=== PATIENT | female | born 1965 | race Caucasian/White ===

== ENCOUNTER 2019-09-02 06:35 | Outpatient (CLI) | payer OTHER, SELFPAY ==
--- NOTE | ~2019-09-02 | XR_ITS ---
XR chest 2V 09/02/2019 07:09 Indication: Cough and dyspnea Procedure: 2 view chest Comparison: Comparison to multiple prior studies sequentially, with oldest reviewed study dated 07/18. Findings: Cardiomegaly. There is linear scarring/atelectasis left midlung. Calcified granuloma right upper lobe. No acute focal pneumonia, edema or effusion. No pneumothorax. No acute osseous abnormalit y. Impression: 1: No acute cardiopulmonary disease. Reviewed, dictated and finalized at location A. CTOR WEB Impression: 1: No acute cardiopulmonary disease.
[2019-09-02 06:54] LABS: Basophils Absolute Auto 0.1 K/mm3 (0.0-0.1); Basophils Percent Auto 0.7 % (0.2-1.2); Eosinophils Absolute Auto 0.3 K/mm3 (0-0.3); Eosinophils Percent Auto 2.6 % (0-4.4); Hematocrit 47.1 % (37.0-47.0); Hemoglobin 15.6 g/dL (12.0-15.0); Immature Granulocyte Absolute 0.02 K/mm3 (0.00-0.031); Immature Granulocyte Percent A 0.2 % (0-0.5); Lymphocytes Absolute Auto 3.93 K/mm3 (0.9-3.2); Lymphocytes Percent Auto 35.7 % (18.3-44.2); Mean Corpuscular HGB Conc 33.1 g/dl (32-36); Mean Corpuscular Hemoglobin 32.6 pg (26-34); Mean Corpuscular Volume 98.3 fl (80-100); Mean Platelet Volume 9.9 fl (7.4-10.4); Monocytes Absolute Auto 0.7 K/mm3 (0.1-0.6); Monocytes Percent Auto 6.5 % (2.6-8.5); Neutrophils Percent Auto 54.3 % (45.5-73.1); Platelet Count Result 265 k/mm3 (150-375); Red Blood Count 4.79 M/mm3 (4.2-5.4); Red Cell Distribution Width 13.2 % (11.5-14.5)
[2019-09-02 07:17] LABS: Blood Urea Nitrogen 12 mg/dL (7-17); Carbon Dioxide 27 mmol/L (22-30); Chloride 108 mmol/L (98-107); Cholesterol 155 mg/dL (0-200); Estimated Glomerular Filt Rate > 60; Glucose 94 mg/dL (65-105); HDL Direct 64 mg/dL; Potassium 3.7 mmol/L (3.4-5.0); Sodium 138 mmol/L (137-145); Triglycerides 93 mg/dL (<150)
[2019-09-02 07:27] LABS: LDL Cholesterol Direct 82 mg/dL
[2019-09-02 09:43] LABS: Iron 108 ug/dL (37-170); Percent Iron Saturation 38 % (20-50)
== END 2019-09-02 06:36 | disposition home or self-care (01) ==
PROVIDERS: PCP Family Medicine; Visit Provider Family Medicine
DX: D58.2 Other hemoglobinopathies (principal); R05 Cough; N20.0 Calculus of kidney; Z13.220 Encounter for screening for lipoid disorders
CPT/HCPCS: 36415; 71046; 80048; 80061; 83540; 83550; 85025

== ENCOUNTER 2019-11-24 14:10 | Outpatient (CLI) | payer OTHER, SELFPAY ==
--- NOTE | ~2019-11-24 | CT_ITS ---
EXAMINATION: CT chest wo con DATE: 11/24/2019 14:39 INDICATION: Cough for 6 months TECHNIQUE: Computed tomography (CT) of the chest was performed without intravenous contrast. The dose -length product was 129.84 mGy-cm. Automated exposure control and iterative reconstruction technique were employed. COMPARISON: CT dated 05/19/2016 FINDINGS: Mild emphysema. Mild mediastinal lymphadenopathy, likely reactive. Precarinal lymph node me asures 9 mm. Right hilar lymph node measures 1 cm. Heart size normal. No significant pleural or peric ardial effusion. Calcified granuloma right upper lobe. Mild emphysema. Small calcified granulomas right lower lobe. Th ere is chronic scarring in the lingula and lower lobes. There is a part solid there are scattered joey cified granulomas in the left lung. Nodule in the right lower lobe posteriorly at the pleural surface measuring 12 mm. The solid component measures 7 mm transverse. No endobronchial lesions. IMPRESSION: 1. Part solid 12 mm mass right lower lobe posteriorly at the pleural surface. Recommend 3 month inter alex low dose CT or pet/CT. 2: Mediastinal and right hilar lymphadenopathy, likely reactive. 3: Mild emphysema. 4: Chronic lower lobe and lingular scarring. Chronic granulomatous disease. Reviewed, dictated and finalized at location A. IMPRESSION: 1. Part solid 12 mm mass right lower lobe posteriorly at the pleural surface. R ecommend 3 month interval low dose CT or pet/CT. 2: Mediastinal and right hilar lymphadenopathy, likely reactive. 3: Mild emphysema. 4: Chronic lower lobe and lingular scarring. Chronic granulomatous disease.
== END 2019-11-24 14:11 | disposition home or self-care (01) ==
PROVIDERS: PCP Family Medicine; Visit Provider Family Medicine
DX: R05 Cough (principal); J43.9 Emphysema, unspecified; R91.8 Other nonspecific abnormal finding of lung field
CPT/HCPCS: 71250

== ENCOUNTER 2019-12-20 12:18 | Outpatient (CLI) | payer OTHER, SELFPAY ==
--- NOTE | 2019-12-21 12:06 | WPDPFTINT ---
PFT Interpretation PFT Interpretation: This PFT met all criteria for ATS standards and reproducibility FEV/FVC post bronchodilator 72% of predicted FEV1 87% or 2.57 liters FVC 91% or 3.54 liters A post bronchodilator Spirometry was not done TLC 107% or 6.58 liters RV 123 % RV/TLC 43% DLCO 52% when adjusted for alveolar volume but not adjusted for hemoglobin Flow volume loops were normal Impression: Possible mild airflow obstruction with air trapping and moderately decreased diffusion capacity. Would recommend repeating Spirometry with pre and post bronchodilator. This may represent COPD and or Asthma. Clinical correlation is advised.
== END 2019-12-20 12:19 | disposition home or self-care (01) ==
PROVIDERS: PCP Family Medicine; Visit Provider Family Medicine
DX: R05 Cough (principal)
CPT/HCPCS: 94375; 94726; 94729

== ENCOUNTER 2020-01-18 07:53 | Outpatient (CLI) | payer OTHER, SELFPAY ==
--- NOTE | ~2020-01-18 | CT_ITS ---
EXAMINATION: CT IAC/mastoids BI wo con DATE: 01/18/2020 08:15 INDICATION: Right-sided chronic otitis media. TECHNIQUE: Computed tomography (CT) of the temporal bones was performed without intravenous contrast. Automated exposure control and iterative reconstruction technique were employed. The dose-length pro duct was 170.94 mGy-cm. COMPARISON: CT temporal bone 09/26/2018 FINDINGS: RIGHT TEMPORAL BONE: The internal auditory canal, cochlea, vestibule, semicircular canals, vestibular aqueduct, carotid ca nal, jugular bulb, facial nerve course, ossicles, scutum, Prussak space, tympanic membrane, mastoid a ir cells, and external auditory canal are normal. LEFT TEMPORAL BONE: The internal auditory canal, cochlea, vestibule, semicircular canals, vestibular aqueduct, carotid ca nal, jugular bulb, facial nerve course, ossicles, Prussak space, scutum, and tympanic membrane are no rmal. There is a small volume of cerumen in left external auditory canal. There is a trace left masto id effusion. IMPRESSION: 1. Trace left mastoid effusion. Reviewed, dictated and finalized at location A.
== END 2020-01-18 07:54 | disposition home or self-care (01) ==
PROVIDERS: PCP Family Medicine
DX: H66.91 Otitis media, unspecified, right ear (principal)
CPT/HCPCS: 70480

== ENCOUNTER 2020-04-04 07:32 | Outpatient (CLI) | payer OTHER, SELFPAY ==
--- NOTE | ~2020-04-04 | CT_ITS ---
EXAMINATION: CT chest wo con DATE: 04/04/2020 07:55 INDICATION: Lung nodule TECHNIQUE: Computed tomography (CT) of the chest was performed without intravenous contrast. The dose -length product (DLP) was 139.00 mGy-cm. Automated exposure control and iterative reconstruction tech [email or web address] were employed. COMPARISON: 11/24/2019 FINDINGS: The previously described groundglass nodules in the right lower lobe is no longer present. No suspicious pulmonary nodules are identified. Calcified pulmonary nodules are consistent with old g ranulomatous disease. There is mild dependent atelectasis. No pleural effusion or pneumothorax is jan ntified. There is mild emphysema. No pathologically enlarged thoracic lymph nodes are identified. The heart size is normal. There is mild thoracic spondylosis. IMPRESSION: 1. Resolved right lower lobe nodule. No suspicious pulmonary nodule identified. Reviewed, dictated and finalized at location A.
== END 2020-04-04 07:33 | disposition home or self-care (01) ==
PROVIDERS: PCP Family Medicine; Visit Provider Family Medicine
DX: R91.1 Solitary pulmonary nodule (principal)
CPT/HCPCS: 71250

== ENCOUNTER 2020-06-19 15:29 | Outpatient (CLI) | payer OTHER, SELFPAY ==
--- NOTE | ~2020-06-19 | MM_ITS ---
EXAMINATION: MM screening hannah BI w larissa HISTORY: Screening mammogram TECHNIQUE: Craniocaudal and mediolateral oblique 3-D tomosynthesis images were obtained and synthetic 2-D images were generated. CAD analysis was submitted and interpreted. COMPARISON: 12/15/2017 bilateral digital screening mammogram BREAST PARENCHYMAL COMPOSITION: There are scattered areas of fibroglandular density. FINDINGS: There is no evidence of suspicious mass, calcification, or architectural distortion to sugg est malignancy in either breast. There has been no suspicious interval change. IMPRESSION: 1. No mammographic evidence of malignancy. 2. Recommend routine screening mammography in one year. BI-RADS Category 1: Negative Reviewed, dictated and finalized at location A. ESTRA MUSICIAN
== END 2020-06-19 15:30 | disposition home or self-care (01) ==
LOC: ANHIMG 15:32
PROVIDERS: PCP Family Medicine; Visit Provider Obstetrics & Gynecology
DX: Z12.31 Encounter for screening mammogram for malignant neoplasm of breast (principal)
CPT/HCPCS: 77063; 77067

== ENCOUNTER 2020-09-23 15:30 | Outpatient (RCR) | payer OTHER, SELFPAY ==
--- NOTE | 2020-08-28 15:45 | PTOPEVAL ---
PHYSICAL THERAPY EVALUATION Thank you for referring Mayra Delgado to [facility] Mayra was evaluated for the dx of right shoulder tendinopathy. The patient is scheduled to be seen for therapy? 2x/week for 6 weeks. Please review, sign, date and return this plan of care FILIPPO. I agree with and certify that the following plan of care is medically necessary. Referring Physician Date Referring Provider: Eri Estevez MPA,LILIBETH *PT Outpatient Evaluation Start: 08/28/20 14:31 Freq: Status: Active Protocol: Document 08/28/20 14:31 MLV (Rec: 08/28/20 15:27 MLV [id number]) Assessment Status Evaluation Evaluation Information Problem Diagnosis right shoulder tendinopathy Onset 3 years Cause fall Additional Evaluation Detail Patient has had shoulder pain for 3 years from tripping over a board/falling. Patient has injection in shoulder 3 times- one of them recently. Patient did not get full relief so got a seconds opinion. The patient states the appt. indicated no surgery-to try PT . Patient has not had PT. Patient has pain with raising her arm. 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 Patient has pain with right sidelying/sleep affected. Diagnostic Tests MRI For This Problem Yes: tendinopathy Pain Assessment Timing of Pain Assessment Timing of Pain Assessment Assessment Pain Scale Pain Scale Used Numeric (1 - 10) Self Report Pain Assessment Right Shoulder(s) Reported Pain Level 0 Pain Frequency Chronic Other Pain Description 10/10 pain occurs infrequently Lowest Pain Intensity 3 Greatest Pain Intensity 10 Pain Aggravating Factors Lifting Additional Pain Comments posterior shoulder blade pain Pain Score Pain Score 0: Self Report Interventions Used Interventions Used By Clinicians Education Pain Relief Interventions Used By Heat,Position Change Patient Cervical and Lumbar ROM Cervical ROM Reason Not Measured WFL/Left,WFL/Right Upper Extremity Range of Motion General Upper Extremity Range of Motion Reason Not Measured WFL/Left,WFL/Right Gross Upper Extremity Range of Motion pain with all motions on right Comments
--- NOTE | 2020-09-11 13:15 | PCPTNOTE ---
Patient called & cancelled scheduled appointment this date-plans to attend next scheduled visit.
--- NOTE | 2020-09-30 09:06 | PCPTNOTE ---
Per front maker lockstitch, Patient called & cancelled scheduled appointment this date due to falling and hurting her wrist.
--- NOTE | 2020-10-07 17:03 | PCPTNOTE ---
Patient called & cancelled scheduled appointment this date due to pt falling and breaking her wrist today.
--- NOTE | 2020-10-16 15:24 | PCPTNOTE ---
PHYSICAL THERAPY DISCHARGE Attending Provider: Eri Estevez MPA,PA-C Patient:Mayra Delgado Date of :1965 Patient has not returned for any further treatments since 09/23/2020, therefore she will be discharged at this time. The patient has called and cancelled last appt due to a fall that caused a wrist fracture. Patient?s initial visit was on 08/28/2020 14:30 and she had a total of 8 visits. The goals have been partially met. Thank you for referring this patient to [facility]. Please review, sign, date and return this discharge summary FILIPPO. I have been updated about the patient's current status and I agree with discharge from the above service at this time. Referring Physician Date
== END 2020-10-17 07:43 | disposition home or self-care (01) ==
LOC: ANHPT 15:30
PROVIDERS: PCP Family Medicine
DX: M75.81 Other shoulder lesions, right shoulder (principal)
CPT/HCPCS: 97014; 97110; 97140; 97161; G0283

== ENCOUNTER 2020-09-28 11:58 | Emergency (ER) | payer OTHER, SELFPAY ==
--- NOTE | ~2020-09-28 | XR_ITS ---
XR ankle RT min 3V DATE: 09/28/2020 12:17 INDICATION: Fall. Right ankle injury, pain TECHNIQUE: 4 views COMPARISON: None FINDINGS: No fracture or dislocation of the ankle or disruption of the ankle mortise. No periosteal r eaction or bone destruction. IMPRESSION: Negative Reviewed, dictated and finalized at location A. IMPRESSION: Negative
--- NOTE | ~2020-09-28 | XR_ITS ---
XR wrist LT 2V DATE: 09/28/2020 13:30 INDICATION: Postoperative reduction examination TECHNIQUE: AP and lateral views COMPARISON: 10/13/2020 left wrist FINDINGS: There is a bandage or cast applied to the forearm and wrist. There is a transverse nondisplaced distal radial metaphyseal fracture with approximately 20 degrees a pex anterior angulation. IMPRESSION: Approximately 20 degrees apex anterior angulation of transverse distal radial metaphyseal fracture Reviewed, dictated and finalized at location A. IMPRESSION: Approximately 20 degrees apex anterior angulation of transverse dis michael radial metaphyseal fracture
--- NOTE | ~2020-09-28 | XR_ITS ---
XR wrist LT min 3V DATE: 09/28/2020 12:17 INDICATION: Fall, left wrist injury TECHNIQUE: 3 views COMPARISON: None FINDINGS: There is a virtually nondisplaced mildly comminuted transverse distal radial metaphyseal fr acture with approximately 17 degrees apex anterior angulation. The distal ulna appears intact. Radiocarpal alignment is preserved. IMPRESSION: Distal radial metaphyseal fracture Reviewed, dictated and finalized at location A.
--- NOTE | ~2020-09-28 | XR_ITS ---
XR chest 2V DATE: 09/28/2020 13:28 INDICATION: Mid chest pain, nausea TECHNIQUE: AP and lateral views in wheelchair COMPARISON: 04/04/2020 CT chest FINDINGS: Chronic discoid atelectasis or more likely scarring in the lower lung zones. Mild infiltrat e and/or atelectasis in the lung bases is not excluded. Mild cardiomegaly. No pulmonary vascular congestion or pleural effusion or pneumothorax. IMPRESSION: Discoid atelectasis and/or scarring in the lower lung zones. Minimal basilar infiltrates are not excluded Cardiomegaly Reviewed, dictated and finalized at location A. IMPRESSION: Discoid atelectasis and/or scarring in the lower lung zones. Minima l basilar infiltrates are not excluded Cardiomegaly
[2020-09-28 11:59] VITALS: BP 116/50; PULSE 67; RESP 20; TEMP 36.4; O2SAT 99
[2020-09-28] MEDS: MORPHINE SULFATE (*CRX) 4 MG/ML INJ IV PUSH (12:30)
[2020-09-28 13:06] VITALS: BP 101/57; PULSE 63; RESP 22; O2SAT 98
--- NOTE | 2020-09-28 13:08 | ECG_ITS ---
Measurements Intervals [place] Rate: 46 P: 58 AK: 174 QRS: 17 QRSD: 103 T: 56 QT: 476 QTc: 421 Interpretive Statements SINUS BRADYCARDIA POSSIBLE LEFT ATRIAL ENLARGEMENT INCOMPLETE RIGHT BUNDLE BRANCH BLOCK EXTENSIVE ANTERIOR INFARCT, AGE INDETERMINATE BASELINE ARTIFACT- I, III, AVL, V6 ABNORMAL ECG Electronically Signed On 09-28-2020 13:32:29 CDT by Terence Velazco D.O.
--- NOTE | 2020-09-28 13:15 | PC.NURSE ---
Patient started c/o chest pain while wrist was being splinted. Nausea medication given, EKG and chest xray completed per dr weir orders.
[2020-09-28] MEDS: ONDANSETRON INJ 4 MG/2 ML VIAL (13:18)
[2020-09-28] MEDS: MORPHINE SULFATE (*CRX) 4 MG/ML INJ (13:18)
--- NOTE | 2020-09-28 13:39 | PC.NURSE ---
Patient called nurse into the room, states that she feels no chest pain after burping.
--- NOTE | 2020-09-28 14:03 | ED.UPPEXIN ---
HPI - Extremity Injury (Upper) General Chief Complaint: Extremity Injury, Upper Stated Complaint: left wrist injury Time Seen by Provider: 09/28/20 12:03 History of Present Illness HPI narrative: Patient is a 54-year-old female who presents ER with pain to the right ankle and left wrist after a trip and fall while doing laundry. Did not strike her head or lose consciousness. Unsure how she landed on her wrist but has deformity and pain. No numbness or tingling. She is able to move her fingers. Additionally she has pain to the medial aspect of her ankle but there is no swelling or numbness or tingling. She is able to bear weight. Related Data Allergies Allergy/AdvReac Type Severity Reaction Status Date / Time No Known Allergies Allergy Verified 09/28/20 12:13 Review of Systems Review of Systems: All systems reviewed & are unremarkable except as noted in HPI and below Constitutional: Constitutional: Denies chills and Denies fever(s) Cardiovascular: Cardiovascular: Reports chest pain, Denies rapid heart rate and Denies radiating jaw, neck or arm pain Respiratory: Respiratory: Denies cough, Denies dyspnea and Denies wheezing Gastrointestinal: Gastrointestinal: Reports abdominal pain, Denies diarrhea, Reports nausea and Denies vomiting Musculoskeletal: Musculoskeletal: Reports arthralgias and Reports muscle cramps Neurologic: Denies syncope, Denies headache(s), Denies focal weakness and Denies numbness PMFSH Past Medical History Medical History Angina at rest Anxiety BMI 24.0-24.9, adult Cough Elevated hemoglobin History of atypical hyperplasia of breast Hx of malignant neoplasm of breast Patella-femoral syndrome Renal stones Surgical complication involving ear Tobacco abuse Tobacco abuse Surgical History Surgical History History of lithotripsy History of lumpectomy of left breast History of partial hysterectomy Hx of cholecystectomy Hx of esophagogastroduodenoscopy Hx of tubal ligation Family History Family History Sibling Cerebrovascular accident Epilepsy Sibling Esophageal cancer Lung cancer Father Acute myocardial infarction Other Breast cancer Mother No problems noted. Social History Social History Smoking packs per day: 1 Smoking cigarettes per day: 20.0 Years smoked: 30 Smoking pack-years: 30.00 Smoking status: Current every day smoker Alcohol intake: current Substance use: never Gender identity (if verbalized by the patient): Female Exam Narrative: Exam Narrative: GENERAL: Well-appearing, well-nourished, and in no acute distress. HEAD: Normocephalic, atraumatic. CHEST: Clear to auscultation. No respiratory distress. HEART: Regular rate and rhythm. Normal peripheral pulses. ABDOMEN: Soft, tender palpation epigastrium without guarding, nondistended. EXTREMITIES: Left upper extremity with deformity to the left wrist with limited range of motion due to pain. Fingers are able to flex and extend with brisk capillary refill and normal sensation. Right ankle with medial malleoli tenderness without swelling or bruising. Patient will bear weight. No additional abnormality with exam. SKIN: Warm, dry, no rash. NEURO: No focal deficits. Alert and oriented x3. Course Course Emergency Course: Patient developed chest pain after wrist manipulation. Chest pain was central but seemed actually to be more in the epigastrium after exam and further history taking. Patient then expelled a large belch and felt much better. But then it returned. It then resolved with nitro. Follow-up blood work unremarkable. Patient is ready for discharge. Dr. Lofton contacted and will follow patient in clinic. Patient reports she has been seen by medical records manager
[2020-09-28] MEDS: NITROGLYCERIN SL 0.4 MG TABLET (14:54)
[2020-09-28 15:18] LABS: Basophils Absolute Auto 0.1 K/mm3 (0.0-0.1); Basophils Percent Auto 0.4 % (0.2-1.2); Eosinophils Absolute Auto 0.1 K/mm3 (0-0.3); Eosinophils Percent Auto 0.4 % (0-4.4); Hematocrit 43.2 % (37.0-47.0); Hemoglobin 14.5 g/dL (12.0-15.0); Immature Granulocyte Absolute 0.06 K/mm3 (0.00-0.031); Immature Granulocyte Percent A 0.3 % (0-0.5); Lymphocytes Absolute Auto 1.69 K/mm3 (0.9-3.2); Lymphocytes Percent Auto 9.5 % (18.3-44.2); Mean Corpuscular HGB Conc 33.6 g/dl (32-36); Mean Corpuscular Hemoglobin 32.8 pg (26-34); Mean Corpuscular Volume 97.7 fl (80-100); Mean Platelet Volume 9.9 fl (7.4-10.4); Monocytes Absolute Auto 0.7 K/mm3 (0.1-0.6); Monocytes Percent Auto 3.9 % (2.6-8.5); Neutrophils Absolute Auto 15.2 K/mm3 (1.3-6.7); Neutrophils Percent Auto 85.5 % (45.5-73.1); Platelet Count Result 232 k/mm3 (150-375); Red Blood Count 4.42 M/mm3 (4.2-5.4); Red Cell Distribution Width 13.1 % (11.5-14.5); White Blood Count 17.8 K/mm3 (4.5-10.0)
[2020-09-28 15:28] LABS: INR 0.9; Prothrombin Time 12.9 Seconds (11.1-14.7)
[2020-09-28 15:29] LABS: Partial Thromboplastin Time 28.3 SECONDS (22.3-36.8)
[2020-09-28 15:30] LABS: Anion Gap 4 mmol/L (8-16); Blood Urea Nitrogen 12 mg/dL (7-17); Calcium 8.6 mg/dL (8.4-10.2); Carbon Dioxide 27 mmol/L (22-30); Chloride 108 mmol/L (98-107); Estimated CRCL calculation 88 ml/min; Estimated Glomerular Filt Rate > 60; Glucose 124 mg/dL (65-105); Sodium 139 mmol/L (137-145)
[2020-09-28 15:41] LABS: Troponin I < 0.012 ng/mL (0.000-0.034)
[2020-09-28 16:01] VITALS: BP 112/78; PULSE 58
== END 2020-09-28 16:01 | disposition home or self-care (01) ==
PROVIDERS: Emergency Provider Emergency Medicine; PCP Family Medicine
DX: S59.292A Other physeal fracture of lower end of radius, left arm, initial encounter for closed fracture (principal); S93.401A Sprain of unspecified ligament of right ankle, initial encounter; R07.9 Chest pain, unspecified; Z85.3 Personal history of malignant neoplasm of breast; Z87.442 Personal history of urinary calculi; F17.210 Nicotine dependence, cigarettes, uncomplicated; R00.1 Bradycardia, unspecified; I45.10 Unspecified right bundle-branch block; R94.31 Abnormal electrocardiogram [ECG] [EKG]; W01.0XXA Fall on same level from slipping, tripping and stumbling without subsequent striking against object, initial encounter
CPT/HCPCS: 25605; 36415; 71046; 73100; 73110; 73610; 80048; 84484; 85025; 85610; 85730; 93005; 96374; 96375; 96376; 99285; A4565; A9270; J2270; J2405

== ENCOUNTER → 2020-10-01 04:26 | Outpatient (CLI) | payer OTHER, SELFPAY ==
[2020-10-01 19:03] LABS: SARS-CoV-2 RNA PCR Negative
--- NOTE | 2020-10-03 11:30 | P.OP_ITS ---
Procedure Note - Detailed Date of procedure: 10/03/20 Pre-op diagnosis: Covid Preop Extra-articular displaced distal radius fracture Post-op diagnosis: same Procedure performed: ORIF distal radius fracture. Implants: [employer] Micronail, size 2. Anesthesia: AMBIKA Surgeon: Fernie Arellano MD Senior Loan Processor: Fariha Baeza PA-C Estimated blood loss (mL): 5 Complications: No immediate complications Condition: stable Disposition: PACU Findings: Physician administrative assistant office manager, Fariha Baeza PA-C, required for surgery; including patient positioning, draping, tissue retraction, maintaining fracture reduction during provisional pin fixation, wound closure, and dressing placement. Preoperative antibiotics were given. The arm was prepped and draped in the usual sterile fashion. A well-padded tourniquet was placed high on the arm. Biplanar fluoroscopy was used throughout the procedure to confirm anatomic reduction and appropriate placement of all implants. A closed reduction was performed. Two K- wires were placed from posterior to anterior at the ulnar aspect of the radius. The limb was exsanguinated and the tourniquet inflated to 250 millimeters of mercury. A longitudinal incision was created at the radial styloid. The interval between the 1st and 2nd dorsal compartments was carefully elevated. The superficial radial nerve was protected. The guidewire was placed into the radial styloid. This was over drilled. The starter awl was then placed followed by the broaches. After good rotational stability was obtained, the real implant was placed. The 3 distal locking screws were placed through the jig. The 2 proximal screws were also placed in a similar fashion through stab incisions. The jig was removed and the wounds were closed with 3 0 Monocryl and 4 0 Monocryl suture. Steri-Strips were placed. A sterile dressing with splint was applied. Estimated blood loss was less than 5 milliliters. The patient was brought to the recovery room in stable condition. There were no complications.
== END ==
PROVIDERS: PCP Family Medicine; Visit Provider Orthopaedic Surgery
DX: Z01.812 Encounter for preprocedural laboratory examination (principal); Z20.822 Contact with and (suspected) exposure to COVID-19
CPT/HCPCS: C9803; U0003; U0005

== ENCOUNTER 2020-10-03 00:59 | Day surgery (SDC) | payer OTHER, SELFPAY ==
[2020-10-01 08:36] VITALS: BMI 25.8
[2020-10-03] VITALS (9 sets, daily range): BP systolic 105–130; BP diastolic 56–77; PULSE 65–83; RESP 12–16; TEMP 36.4–37.2; O2SAT 94–99
--- NOTE | ~2020-10-03 | XR_ITS ---
EXAMINATION: XR surgery orthopedic EXAM DATE: 10/03/2020 12:53 INDICATION: ORIF Lt Wrist . TECHNIQUE: Fluoroscopy used during left radial ORIF performed by Dr. Fernie Arellano MD. Radiol ogist was not present for the imaging or procedure. Total fluoroscopic time of 1.8 minutes. A total of 3 images obtained for the exam. The DAP for this procedure was 0.048 mGym2. FINDINGS: Frontal and lateral images demonstrate left radial plate with supporting screws bridging a distal metaphyseal fracture in anatomic alignment. There is ulnar minus variance, congenital finding . Correlate with procedure note. IMPRESSION: Fluoroscopy used during left radial ORIF. Reviewed, dictated and finalized at location A.
[2020-10-03] MEDS: LACTATED RINGERS 1,000 ML 30 ML IV CONT ×2 (09:51→13:56)
[2020-10-03] MEDS: KETOROLAC 15 MG/ML VIAL (*BKC) IV PUSH (09:51)
--- NOTE | 2020-10-03 10:04 | WPDANESEPPF ---
Anes - Initial Pre Proc Eval Procedure: Operation Date: 10/03/20 11:00 Proposed Procedures p Left Open Reduction Internal Fixation Distal Radius Extraarticular Fracture(Left) - Fernie Arellano MD Date/Time: 10/03/20 10:04 Surgeon: Fernie Arellano MD Pre Op Diagnosis: Distal radius fracture Patient Data Age: 55 Gender: F Height: 5 ft 10 in Weight: 77.7 kg Last Vital Signs Temp 37.2 C 10/03/20 09:21 Pulse 83 10/03/20 09:21 Resp 16 10/03/20 09:21 BP 105/72 10/03/20 09:21 Pulse Ox 97 10/03/20 09:21 Allergies Allergy/AdvReac Type Severity Reaction Status Date / Time No Known Allergies Allergy Verified 10/01/20 08:34 Home Medications Medication Instructions Recorded Confirmed Type hydrocodone 7.5 mg-acetaminophen 1 - 2 tablet PO Q4-6H PRN #30 09/30/20 10/03/20 Rx 325 mg tablet tablet alprazolam 1 mg PO BID PRN 10/01/20 10/03/20 History Patient hx anesthesia problems: none Family hx anesthesia problems: none PMFSH Past Medical History Medical History Angina at rest Anxiety BMI 24.0-24.9, adult Cough Elevated hemoglobin History of atypical hyperplasia of breast Hx of malignant neoplasm of breast Patella-femoral syndrome Renal stones Surgical complication involving ear Tobacco abuse Tobacco abuse Surgical History Surgical History History of lithotripsy History of lumpectomy of left breast History of partial hysterectomy Hx of cholecystectomy Hx of esophagogastroduodenoscopy Hx of tubal ligation Family History Family History Sibling Cerebrovascular accident Epilepsy Sibling Esophageal cancer Lung cancer Father Acute myocardial infarction Other Breast cancer Mother No problems noted. Social History Social History Smoking packs per day: 1 Smoking cigarettes per day: 20.0 Years smoked: 30 Smoking pack-years: 30.00 Smoking status: Current every day smoker Tobacco type: cigarettes Alcohol intake: current Substance use: never Substance use type: does not use Living arrangements: with family Gender identity (if verbalized by the patient): Female Spiritual care concerns: No Anes - Eval Final PreProcedure Day of Procedure 10/03/20 10:04 Patient weight: normal Heart: regular rate and rhythm Lungs: decreased breath sounds Airway: Mallampati scale class III Neurological: alert and oriented Last oral intake: >/= 8 hours ASA classification: III Emergent: no Anesthetic plan: proceed Anesthesia type and monitoring: general LMA and standard monitoring Informed Consent: The patient's anesthetic plan and its attendant risks and benefits were discussed with the patient/family/POA. Questions were solicited and answers provided to the satisfaction of the patient/family/POA.
--- NOTE | 2020-10-03 10:20 | SUR.PREOP ---
notified Dr Arellano that patient is requesting dressing not be removed before procedure. Patient has small open area of skin on left elbow that patient has bandaid on.
--- NOTE | 2020-10-03 11:29 | WPDHPUPDATE1 ---
History and Physical Update Update Date/Time: 10/03/20 11:29 History and Physical has been reviewed, including an updated exam of the patient. There are NO changes in the patient's condition. Risks, benefits, and alternatives have been discussed and questions answered. Patient agrees to proceed with procedure.
[2020-10-03] MEDS: ceFAZolin 2 GM/D5W 50 ML 2 GM/50 ML BAG IVPB (11:34)
[2020-10-03] MEDS: BUPIVACAINE/EPINEPHRINE 0.5% 30 ML VIAL INFILTRATE (11:51)
[2020-10-03] MEDS: fentaNYL CITRATE INJ (*CRX) 100 MCG/2 ML VIAL 25 MCG IV PUSH ×8 (13:18→13:49)
[2020-10-03] MEDS: oxyCODONE HCL (*CRX) 5 MG TAB IR PO (14:28)
--- NOTE | 2020-10-04 11:34 | OP_ITS ---
This report was moved to the correct visit, [id number] on 10/07/20. Original report was signed by Fernie Arellano MD on 10/04/20 1134. Procedure Note - Detailed Date of procedure: 10/03/20 Pre-op diagnosis: Covid Preop Extra-articular displaced distal radius fracture Post-op diagnosis: same Procedure performed: ORIF distal radius fracture. Implants: [employer] Micronail, size 2. Anesthesia: GETA Surgeon: Fernie Arellano MD Set Illustrator: Fariha Baeza PA-C Estimated blood loss (mL): 5 Complications: No immediate complications Condition: stable Disposition: PACU Findings: Physician radiology practitioner assistant, Fariha Baeza PA-C, required for surgery; including patient positioning, draping, tissue retraction, maintaining fracture reduction during provisional pin fixation, wound closure, and dressing placement. Preoperative antibiotics were given. The arm was prepped and draped in the usual sterile fashion. A well-padded tourniquet was placed high on the arm. Biplanar fluoroscopy was used throughout the procedure to confirm anatomic reduction and appropriate placement of all implants. A closed reduction was performed. Two K- wires were placed from posterior to anterior at the ulnar aspect of the radius. The limb was exsanguinated and the tourniquet inflated to 250 millimeters of mercury. A longitudinal incision was created at the radial styloid. The interval between the 1st and 2nd dorsal compartments was carefully elevated. The superficial radial nerve was protected. The guidewire was placed into the radial styloid. This was over drilled. The starter awl was then placed followed by the broaches. After good rotational stability was obtained, the real implant was placed. The 3 distal locking screws were placed through the jig. The 2 proximal screws were also placed in a similar fashion through stab incisions. The jig was removed and the wounds were closed with 3 0 Monocryl and 4 0 Monocryl suture. Steri-Strips were placed. A sterile dressing with splint was applied. Estimated blood loss was less than 5 milliliters. The patient was brought to the recovery room in stable condition. There were no complications. This dictation may have been done utilizing a voice recognition system. Attempts have been made to correct errors. However, there may be uncorrected grammatical, spelling, and recognition errors present. Report Initialized date/time: Fernie Arellano MD 10/04/20 / 1134 Electronically signed by: Fernie Arellano MD 10/04/20 1134 [facility]
== END 2020-10-03 14:45 | disposition home or self-care (01) ==
PROVIDERS: PCP Family Medicine; Visit Provider Orthopaedic Surgery
PROC: (CPT 25575; principal; 2020-10-03 11:00)
DX: S52.552A Other extraarticular fracture of lower end of left radius, initial encounter for closed fracture (principal); W01.0XXA Fall on same level from slipping, tripping and stumbling without subsequent striking against object, initial encounter; F17.210 Nicotine dependence, cigarettes, uncomplicated; F41.9 Anxiety disorder, unspecified; Z85.3 Personal history of malignant neoplasm of breast
CPT/HCPCS: 25607; A9270; C1713; C1769; J0690; J1100; J1885; J2250; J2405; J2704; J3010; J7120

== ENCOUNTER 2020-11-14 13:22 | Outpatient (CLI) | payer OTHER, SELFPAY | END 2020-11-14 13:23 | disposition home or self-care (01) | LOC: ANHLAB 13:25 | PROVIDERS: PCP Family Medicine; Visit Provider Obstetrics & Gynecology | DX: Z00.00 Encounter for general adult medical examination without abnormal findings (principal) | CPT/HCPCS: 36415; 84443 ==

== ENCOUNTER 2021-01-20 14:49 | Outpatient (CLI) | payer OTHER, SELFPAY ==
--- NOTE | ~2021-01-20 | CT_ITS ---
EXAMINATION: CT lung screening DATE: 01/20/2021 15:45 INDICATION: Cough. Smoker. History of tobacco dependence. TECHNIQUE: Computed tomography (CT) of the chest was performed without intravenous contrast. The dose -length product was 76.13 mGy-cm. Automated exposure control and iterative reconstruction technique w ere employed. COMPARISON: CT dated 04/04/2020 FINDINGS: No significant pleural or pericardial effusion. No thoracic lymphadenopathy. There is ather osclerosis of the aorta. Heart size normal. No significant pleural or pericardial effusion. Calcified granuloma left lower lobe. There are additional scattered calcified granulomas throughout both lungs . No endobronchial lesions. There are scattered areas of subsegmental atelectasis. There is mild emph ysema. There are a few small pulmonary nodules measuring 2 mm or less which are not clearly calcified . Mild thoracic spondylosis. No focal lytic or blastic lesions. There is left renal atrophy. Multiple left renal stones. No significant hydronephrosis. IMPRESSION: 1. Lung-RADS category 2: Benign appearance or behavior. Continue annual screening with noncontrast lo w-dose chest CT in 12 months. Reviewed, dictated and finalized at location A. IMPRESSION: 1. Lung-RADS category 2: Benign appearance or behavior. Continue annual screeni ng with noncontrast low-dose chest CT in 12 months.
== END 2021-01-20 14:50 | disposition home or self-care (01) ==
PROVIDERS: PCP Family Medicine; Visit Provider Family Medicine
DX: Z87.891 Personal history of nicotine dependence (principal); E78.5 Hyperlipidemia, unspecified
CPT/HCPCS: 71271

== ENCOUNTER 2021-01-30 11:00 | Outpatient (RCR) | payer OTHER, SELFPAY ==
--- NOTE | 2020-11-04 17:36 | PTOPEVAL ---
PHYSICAL THERAPY EVALUATION AND PLAN OF CARE Thank you for referring Mayra Delgado to [facility].? The patient is scheduled to be seen for therapy? 2x/week for 4 weeks. Please review, sign, date and return this plan of care FILIPPO. I agree with and certify that the following plan of care is medically necessary. Referring Physician Date Attending Provider: Fernie Arellano MD Evaluation Outpatient Past Medical History Neurological History Hx Neurological Disorders No Significant History Cardiovascular History Hx Cardiac Catheterization Yes: Negative Hx Palpitations Yes: Muscle spasm in heart Hx Other Cardiac Disorders Yes: Dr. Reyes Respiratory History Hx Respiratory Disorders No Significant History Gastrointestinal History Hx Cholecystectomy Yes Genitourinary History Hx Kidney Stones Yes: lithotripsy - left kidney Musculoskeletal History Hx Fractures Yes: LT WRIST CURRENTLY Hematological History Hx Hematological Disorders No Significant History Endocrine History Hx Endocrine Disorders No Significant History HEENT History Hx Ear Surgery Yes: RT EARDRUM RUPTURE - SURGERY 02/2020 Integumentary History Hx Skin Disorders No Significant History Psychosocial History Hx Anxiety Yes Pain History History of Any Previous or Ongoing No Significant History Instance of Pain Anesthesia History Hx Anesthesia Reactions No Significant History Other History Hx Other Medical Conditions Yes: Left breast marker Diagnosis left wrist ORIF Onset 10/03/2020 Subjective Information One month ago she fell and Query Text:As Reported By Patient/ fractured left wrist. She is 1 Family month s/p ORIF. She is wearing a lace up brace that she states she keeps on most of the time. Mayra reports that she has a significant amount of pain in the wrist and reports burning in the wrist and feels like the brace is always rubbing even though she doesn't see any redness on the skin. Pain Assessment Timing of Pain Assessment Timing of Pain Assessment Assessment Pain Scale Pain Scale Used Numeric (1 - 10) Self Report Pain Assessment Right Wrist(s) Reported Pain Level 3 Pain Description Burning Lowest Pain Intensity 2 Greatest Pain Intensity 8 Other Pain Aggravating Factors gripping, moving the wrist Pain Behaviors Anxious Additional Pain Comments
--- NOTE | 2020-12-05 15:08 | PTOPEVAL ---
PHYSICAL THERAPY PLAN OF CARE UPDATE Thank you for referring Mayra Delgado to [facility] [place].? The patient is scheduled to be seen for therapy? 2x/week for 4 weeks. Please review, sign, date and return this plan of care FILIPPO. I agree with and certify that the following plan of care is medically necessary. Referring Physician Date Attending Provider: Fernie Arellano MD Assessment Status Progress Diagnosis left wrist ORIF Onset 10/03/2020 Subjective Information two months ago she fell and Query Text:As Reported By Patient/ fractured left wrist. She is 2 Family month s/p ORIF. continues to wear a wrist brace without the metal bars (more flexible). She reports that she slept one night without the brace and the wrist swelled up. It reduced after one day of elevation and ice. She did call the orthopedic exchange Self Report Pain Assessment Right Wrist(s) Reported Pain Level 5 Pain Description Burning Other Pain Aggravating Factors gripping, moving the wrist Pain Behaviors Anxious Additional Pain Comments fearful of moving Pain Score Pain Score 5: Self Report Interventions Used Interventions Used By Clinicians Exercise,Fluidotherapy,Joint Mobilization Pain Relief Interventions Used By Medication Patient Upper Extremity Range of Motion Elbow/Forearm Range of Motion Left Forearm Supination - Active 45 Forearm Pronation - Active 90 Wrist Range of Motion Left Wrist Flexion - Active 26 Wrist Extension - Active 15 Wrist Extension - Passive 22 Wrist Radial Deviation - Active 16 Wrist Ulnar Deviation - Active 17 Upper Extremity Muscle Strength Testing Wrist Strength Left Wrist Flexion Strength 3- Fair - Wrist Radial Deviation 3- Fair - Wrist Ulnar Deviation 3- Fair - Palpation Assessment Palpation Palpation continues to be fearful of movement touch; is tolerating use of ez-director life compression garment (suggested as an alterantive to brace to wear at night) General Exercise General Exercises Side Left Exercise Location wrist Exercise Type Active Exercise Description - supine bicep curl with #1 Query Text:Record Sets, Reps, dumbbell [id number] Resistance, and Position - supine shoulder flexion
--- NOTE | 2021-01-02 09:21 | PTOPEVAL ---
PHYSICAL THERAPY PROGRESS REPORT Thank you for referring Mayra Delgado to [facility].? The patient is scheduled to be seen for therapy? 1-2x/week for 4 weeks. Please review, sign, date and return this plan of care FILIPPO. I agree with and certify that the following plan of care is medically necessary. Referring Physician Date Attending Provider: Fernie Arellano MD Progress Diagnosis left wrist ORIF Onset 10/03/2020 Subjective Information She is 3 month s/p ORIF. She Query Text:As Reported By Patient/ is sleeping without her brace Family even though there is some swelling in the wrist. She also reports there is no longer any burning in the arm. Mayra is also able to wash her hair with her hand despite pain and swelling. Self Report Pain Assessment Right Wrist(s) Reported Pain Level 2 Pain Description Aching,Burning Other Pain Aggravating Factors gripping, moving the wrist Pain Score Pain Score 2: Self Report Additional Pain Score Comments took a pain pill Interventions Used Interventions Used By Clinicians Exercise,Heat,Joint Mobilization Pain Relief Interventions Used By Medication Patient Upper Extremity Range of Motion Elbow/Forearm Range of Motion Left Forearm Supination - Active 70 Forearm Pronation - Active 90 Wrist Range of Motion Left Wrist Flexion - Active 49 Wrist Extension - Active 36 Wrist Radial Deviation - Active 20 Wrist Ulnar Deviation - Active 21 Finger Range of Motion Left Finger Range of Motion Comments generally WNL for finger abduction/adduction; limited finger flexion and thumb abduction Upper Extremity Muscle Strength Testing General Upper Extremity Strength Gross Upper Extremity Strength Comments colby pinch radiographer technologist: 5lb radiographer technologist strength: 10lb pressure Elbow/Forearm Left Elbow Flexion Strength 4 Good Elbow Extension Strength 3+ Fair + Forearm Pronation Strength 4- Good - Forearm Supination Strength 4- Good - Wrist Strength Left Wrist Flexion Strength 4- Good - Wrist Extension Strength 4- Good - Wrist Radial Deviation 4- Good - Wrist Ulnar Deviation 4- Good - Palpation Assessment Palpation Palpation not fearful of touch General Exercise General Exercises Side Left Exercise Location wrist Exercise Type Active,Resistive,Stretching Exercise Description
--- NOTE | 2021-02-04 17:19 | PCPTNOTE ---
This treatment is being continued on visit number [id number]. Please see documentation on both accounts to view progress. Completed interventions, outcomes, and problems have been marked as Inactive to facilitate the copying of the Care plan routine for recurring accounts.
== END 2021-02-02 23:59 | disposition home or self-care (01) ==
LOC: ANHPT 11:00
PROVIDERS: PCP Family Medicine; Visit Provider Orthopaedic Surgery
DX: S52.502D Unspecified fracture of the lower end of left radius, subsequent encounter for closed fracture with routine healing (principal)
CPT/HCPCS: 97022; 97110; 97140; 97162

== ENCOUNTER 2021-04-30 08:30 | Outpatient (RCR) | payer OTHER, SELFPAY ==
--- NOTE | 2021-02-04 17:18 | PCPTNOTE ---
The treatment documented on this account is a continuation of the treatment documented on visit number [id number]. Please see documentation on both accounts to view progress. The Plan of Care has been transitioned and updated within the new V#. I have addressed and agree with the discipline specific Problems, Interventions, and Goals for the current certification period. Completed interventions, outcomes, and problems have been marked as Inactive to facilitate the copying of the Care plan routine for recurring accounts.
--- NOTE | 2021-02-06 16:17 | PTOPEVAL ---
PHYSICAL THERAPY PROGRESS REPORT AND PLAN OF CARE UPDATE Thank you for referring Mayra Delgado to [facility].? The patient is scheduled to be seen for therapy? 2x/week for 4 weeks. Please review, sign, date and return this plan of care FILIPPO. I agree with and certify that the following plan of care is medically necessary. Referring Physician Date Attending Provider: Fernie Arellano MD Progress Diagnosis left wrist ORIF Onset 10/03/2020 Subjective Information She is 4 month s/p ORIF. She Query Text:As Reported By Patient/ can now put her own hair in a Family pony tail and washing her hair is getting easier. Pain Assessment Timing of Pain Assessment Timing of Pain Assessment Pre-Treatment Pain Scale Pain Scale Used Numeric (1 - 10) Self Report Pain Assessment Left Wrist(s) Reported Pain Level 3 Pain Description Aching,Tightness Pain Score Pain Score 3: Self Report Additional Pain Score Comments took a pain pill Interventions Used Interventions Used By Clinicians Exercise,Heat,Mobilization, Manual Therapy Techniques Pain Relief Interventions Used By Medication Patient Upper Extremity Range of Motion Wrist Range of Motion Right Wrist Flexion - Active 75 Wrist Extension - Active 50 Wrist Radial Deviation - Active 30 Wrist Ulnar Deviation - Active 40 Left Wrist Flexion - Active 50 Wrist Extension - Active 40 Wrist Radial Deviation - Active 30 Wrist Ulnar Deviation - Active 25 Upper Extremity Muscle Strength Testing General Upper Extremity Strength Gross Upper Extremity Strength Comments left colby pinch entry level receptionist: 6lb left entry level receptionist strength: 25lb pressure Elbow/Forearm Left Elbow Flexion Strength 5 Normal Elbow Extension Strength 5 Normal Wrist Strength Left Wrist Flexion Strength 4+ Good + Wrist Extension Strength 4+ Good + Wrist Radial Deviation 4+ Good + Wrist Ulnar Deviation 4+ Good + General Exercise General Exercises Side Left Exercise Location wrist Exercise Type Active,Resistive,Stretching Exercise Description -walking carry with 8#bucket Query Text:Record Sets, Reps, x75ft for entry level receptionist strength Resistance, and Position -5# lift from seat to head height x10 -3#supination x15 -shoulder ER at 90deg abduction yellow band x15 -weight bearing in semi prone to encourage wrist extension
--- NOTE | 2021-03-12 09:01 | PTOPEVAL ---
PHYSICAL THERAPY PROGRESS REPORT Thank you for referring Mayra Delgado to [facility]Note 3[facility]? The patient is scheduled to be seen for therapy? 2x/week for 4 weeks to continue PT for shoulders. Please review, sign, date and return this plan of care FILIPPO. I agree with and certify that the following plan of care is medically necessary. Referring Physician Date Attending Provider: Fernie Arellano MD Progress Diagnosis left wrist ORIF Onset 10/03/2020 Subjective Information She is 5 month s/p ORIF. the Query Text:As Reported By Patient/ wrist is feeling much better. Family She feels much more functional with the wrist and can do most things that she wants to do. There is some pain but much more manageable. She has a new order from the doctor to look at her shoulders. both shoulders have pain. The left shoulder is ok except for going into extension. The right shoulder has pain on elevation and with rotation. Self Report Pain Assessment Left Shoulder(s) Reported Pain Level 0 Pain Description Aching Pain Frequency Chronic,Intermittent Greatest Pain Intensity 4 Right Shoulder(s) Reported Pain Level 4 Pain Description Sharp,Soreness Pain Frequency Chronic,Continuous Left Wrist(s) Reported Pain Level 3 Pain Description Aching,Tightness Pain Score Pain Score 3,4,0: Self Report Additional Pain Score Comments took a pain pill Interventions Used Interventions Used By Clinicians Exercise,Heat,Mobilization Pain Relief Interventions Used By Medication Patient Upper Extremity Range of Motion Scapular/ Shoulder Range of Motion Right Shoulder Flexion - Active 125 Shoulder Extension - Active 50 Shoulder Abduction - Active 110 Shoulder Lateral Rotation - Active 60 Left Shoulder Flexion - Active 144 Shoulder Extension - Active 40 Shoulder Abduction - Active 145 Shoulder Lateral Rotation - Active 55 Wrist Range of Motion Right Wrist Flexion - Active 75 Wrist Extension - Active 60 Wrist Radial Deviation - Active 30 Wrist Ulnar Deviation - Active 40 Left Wrist Flexion - Active 60 Wrist Extension - Active 60 Wrist Radial Deviation - Active 30 Wrist Ulnar Deviation - Active 30 Upper Extremity Muscle Strength Testing General Upper Extremity Strength Gross Uppe
--- NOTE | 2021-04-14 13:29 | PTOPEVAL ---
PHYSICAL THERAPY PROGRESS REPORT Thank you for referring Mayra Delgado to [facility].? The patient is scheduled to be seen for therapy? 1x/week for 6 weeks. Please review, sign, date and return this plan of care FILIPPO. I agree with and certify that the following plan of care is medically necessary. Referring Physician Date Attending Provider: Fernie Arellano MD Progress Diagnosis left wrist ORIF Onset 10/03/2020 Subjective Information She is 6 month s/p ORIF. 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 Started yesterday and was very sore. Self Report Pain Assessment Left Shoulder(s) Reported Pain Level 0 Pain Description Aching Pain Frequency Chronic,Intermittent Right Shoulder(s) Reported Pain Level 2 Pain Description Sharp,Soreness Pain Frequency Chronic,Continuous Left Wrist(s) Reported Pain Level 0 Pain Description Aching,Tightness Pain Score Pain Score 0,2,0: Self Report Interventions Used Interventions Used By Clinicians Exercise,Heat,Mobilization Pain Relief Interventions Used By Medication Patient Upper Extremity Range of Motion Scapular/ Shoulder Range of Motion Right Shoulder Flexion - Active 150 Shoulder Extension - Active 50 Shoulder Abduction - Active 150 Shoulder Lateral Rotation - Active 80 Left Shoulder Flexion - Active 150 Shoulder Extension - Active 50 Shoulder Abduction - Active 145 Shoulder Medial Rotation - Active L1 Query Text:Reach Behind the Back Shoulder Lateral Rotation - Active 75 Wrist Range of Motion Right Wrist Flexion - Active 75 Wrist Extension - Active 60 Wrist Radial Deviation - Active 30 Wrist Ulnar Deviation - Active 40 Left Wrist Flexion - Active 60 Wrist Extension - Active 60 Wrist Radial Deviation - Active 30 Wrist Ulnar Deviation - Active 30 Upper Extremity Muscle Strength Testing General Upper Extremity Strength Gross Upper Extremity Strength Comments left colby pinch recruiter coordinator: 14lb left recruiter coordinator strength: 49lb pressure Scapular/Shoulder Bilateral Shoulder Flexion Strength 4- Good - Shoulder Extension Strength 4- Good - Shoulder Abduction Strength 4- Good - Shoulder Medial Rotation Strength 5 Normal Shoulder Lateral Rotation Strength 5 Normal Elbow/Forearm Left Elbow Flexion Strength 5 Normal Elbow Extension Strength 5 Normal Wrist Strength Left Wrist Flexion Strength 5 Normal Wrist Extension Strength 5 Normal Wrist Radial Deviation
--- NOTE | 2021-05-05 16:51 | PCPTNOTE ---
This treatment is being continued on visit number [id number]. Please see documentation on both accounts to view progress. Completed interventions, outcomes, and problems have been marked as Inactive to facilitate the copying of the Care plan routine for recurring accounts.
== END 2021-05-05 15:45 | disposition home or self-care (01) ==
LOC: ANHPT 08:30
PROVIDERS: PCP Family Medicine; Visit Provider Orthopaedic Surgery
DX: S52.502D Unspecified fracture of the lower end of left radius, subsequent encounter for closed fracture with routine healing (principal)
CPT/HCPCS: 97110; 97140

== ENCOUNTER 2021-05-27 08:00 | Outpatient (RCR) | payer OTHER, SELFPAY ==
--- NOTE | 2021-05-05 16:51 | PCPTNOTE ---
The treatment documented on this account is a continuation of the treatment documented on visit number [id number]. Please see documentation on both accounts to view progress. The Plan of Care has been transitioned and updated within the new V#. I have addressed and agree with the discipline specific Problems, Interventions, and Goals for the current certification period. Completed interventions, outcomes, and problems have been marked as Inactive to facilitate the copying of the Care plan routine for recurring accounts.
--- NOTE | 2021-05-27 08:23 | PTOPEVAL ---
PHYSICAL THERAPY DISCHARGE NOTE Thank you for referring Mayra Delgado to [facility].? Please review, sign, date and return this plan of care FILIPPO. I agree with and certify that the following plan of care is medically necessary. Referring Physician Date Attending Provider: Fernie Arellano MD Diagnosis left wrist ORIF Onset 10/03/2020 Subjective Information states that left shoulder is Query Text:As Reported By Patient/ doing fine. 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 States that the right shoulder pain is a little better than a month ago. States that the wrist hurts and thinks it may be the cold. Self Report Pain Assessment Left Wrist(s) Reported Pain Level 3 Pain Description Aching,Soreness,Throbbing Left Shoulder(s) Reported Pain Level 0 Right Shoulder(s) Reported Pain Level 1 Pain Description Aching Pain Aggravating Factors Lifting Other Pain Aggravating Factors reaching over head Pain Score Pain Score 3,0,1: Self Report Interventions Used Interventions Used By Clinicians Exercise,Heat,Mobilization Pain Relief Interventions Used By Medication Patient Upper Extremity Range of Motion Scapular/ Shoulder Range of Motion Left Shoulder Flexion - Active 150 Shoulder Abduction - Active 150 Shoulder Medial Rotation - Active T11 Query Text:Reach Behind the Back Shoulder Lateral Rotation - Active 60 Query Text:Reach Behind the Head Right Shoulder Flexion - Active 150 Shoulder Abduction - Active 150 Shoulder Medial Rotation - Active T11 Query Text:Reach Behind the Back Shoulder Lateral Rotation - Active 70 Query Text:Reach Behind the Head Upper Extremity Muscle Strength Testing General Upper Extremity Strength Gross Upper Extremity Strength Comments left senior software qa analyst: 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
== END 2021-05-28 08:57 | disposition home or self-care (01) ==
LOC: ANHPT 08:00
PROVIDERS: PCP Family Medicine; Visit Provider Orthopaedic Surgery
DX: Z47.89 Encounter for other orthopedic aftercare (principal); S52.502D Unspecified fracture of the lower end of left radius, subsequent encounter for closed fracture with routine healing; M75.41 Impingement syndrome of right shoulder; M75.42 Impingement syndrome of left shoulder
CPT/HCPCS: 97110; 97140

== ENCOUNTER 2021-08-20 07:30 | Outpatient (RCR) | payer OTHER, SELFPAY ==
--- NOTE | 2021-07-07 08:23 | PTOPEVAL ---
PHYSICAL THERAPY EVALUATION AND PLAN OF CARE Thank you for referring Mayra Delgado to [facility].? The patient is scheduled to be seen for therapy? 1x/week for 5 weeks. Please review, sign, date and return this plan of care FILIPPO. I agree with and certify that the following plan of care is medically necessary. Referring Physician Date Attending Provider: Fernie Arellano MD Evaluation Diagnosis right shoulder pain Onset chronic Cause insidious Subjective Information Mayra has been having a Query Text:As Reported By Patient/ chronic pain in her right Family shoulder. She was recentlyseen in physical therapy for the right shoulder with some improvement. Today she reports that she still has trouble bringing the arm backward. Self Report Pain Assessment Right Shoulder(s) Reported Pain Level 0 Pain Frequency Chronic,Intermittent Lowest Pain Intensity 0 Greatest Pain Intensity 6 Pain Score Pain Score 0: Self Report Upper Extremity Range of Motion Scapular/ Shoulder Range of Motion Right Shoulder Flexion - Active 158 Shoulder Abduction - Active 141 Shoulder Medial Rotation - Active L1 Query Text:Reach Behind the Back Shoulder Lateral Rotation - Active 67 Upper Extremity Muscle Strength Testing Scapular/Shoulder Right Shoulder Flexion Strength 4 Good Shoulder Abduction Strength 4 Good Shoulder Medial Rotation Strength 5 Normal Shoulder Lateral Rotation Strength 5 Normal Posture Posture Sitting Position Posture Evaluation View Lateral Shoulder Posture (L) Rounded,(R) Rounded Arm Posture (L) Internally Rotated,(R) Internally Rotated Palpation tender to palpation at SC joint and anterior shoulder tissues; trigger point noted to right subscapularis General Exercise Side Right Exercise Location shoulder Exercise Type Active,Resistive,Stretching Exercise Description -resisted shoulder flexion red Query Text:Record Sets, Reps, band Resistance, and Position -resisted shoulder scaption red band -resisted shoulder external rotation at scaption in abduction red band -corner pec stretch with reminder to keep elbows even with shoulders
--- NOTE | 2021-08-04 10:26 | PCPTNOTE ---
Patient called & cancelled scheduled appointment this date due to 's appointment in [place].
--- NOTE | 2021-08-11 07:31 | PCPTNOTE ---
Patient called & cancelled scheduled appointment this date due to having another appointment.
--- NOTE | 2021-08-18 09:03 | PCPTNOTE ---
Patient called & cancelled scheduled appointment this date due to getting called in to work.
--- NOTE | 2021-08-20 07:50 | PTOPEVAL ---
PHYSICAL THERAPY DISCHARGE NOTE Thank you for referring Mayra Delgado to [facility].? Please review, sign, date and return this plan of care FILIPPO. I agree with and certify that the following plan of care is medically necessary. Referring Physician Date Attending Provider: Fernie Arellano MD Discharge Diagnosis right shoulder pain Onset chronic Cause insidious Subjective Information States that her right shoulder Query Text:As Reported By Patient/ is good. Every now and then Family gives her trouble but for the most part is good. Pain Assessment Timing of Pain Assessment Timing of Pain Assessment Assessment Self Report Self Report Pain Level 0 Pain Score Pain Score 0: Self Report Upper Extremity Range of Motion Scapular/ Shoulder Range of Motion Right Shoulder Flexion - Active 165 Shoulder Abduction - Active 160 Shoulder Medial Rotation - Active T10 Query Text:Reach Behind the Back Shoulder Lateral Rotation - Active 75 Upper Extremity Muscle Strength Testing Scapular/Shoulder Right Shoulder Flexion Strength 4+ Good + Shoulder Abduction Strength 4+ Good + Shoulder Medial Rotation Strength 5 Normal Shoulder Lateral Rotation Strength 5 Normal PT Clinical Summary Mayra participated in physical therapy for right shoulder pain. She reports no pain with functional tasks or ADLs. She demonstrates normal shoulder ROM and functional shoulder strength and has met her goals . We will d/c from PT at this time. Rehabilitation Potential Good Potential Barriers to Goal Achievements None Support Requirements For Optimal None Heaters Patient/Caregiver Informed of Benefits/ Yes Risks of Rehabilitation Patient/Caregiver Participated in Plan Yes of Care Patient/Caregiver Agreed with Problem Yes List/POC/Goals
== END 2021-08-20 11:08 | disposition home or self-care (01) ==
LOC: ANHPT 07:30
PROVIDERS: PCP Family Medicine; Visit Provider Orthopaedic Surgery
DX: M25.511 Pain in right shoulder (principal)
CPT/HCPCS: 97110; 97140; 97162

== ENCOUNTER 2022-01-01 07:57 | Outpatient (CLI) | payer OTHER, SELFPAY ==
--- NOTE | 2022-01-01 08:07 | ECG_ITS ---
Measurements Intervals [place] Rate: 61 P: 56 AL: 171 QRS: 9 QRSD: 105 T: 55 QT: 414 QTc: 418 Interpretive Statements SINUS RHYTHM POSSIBLE LEFT ATRIAL ENLARGEMENT INCOMPLETE RIGHT BUNDLE BRANCH BLOCK ANTEROSEPTAL INFARCT, AGE INDETERMINATE BASELINE ARTIFACT- I, II, III, AVR, AVL, AVF ABNORMAL ECG Electronically Signed On 01-01-2022 8:21:59 CDT by Terence Velazco D.O.
== END 2022-01-01 07:58 | disposition home or self-care (01) ==
LOC: ANHSURGERY 08:03
PROVIDERS: PCP Family Medicine; Visit Provider Orthopaedic Surgery
DX: Z01.818 Encounter for other preprocedural examination (principal); Z72.0 Tobacco use; I45.10 Unspecified right bundle-branch block
CPT/HCPCS: 93005

== ENCOUNTER 2022-01-02 00:58 | Day surgery (SDC) | payer OTHER, SELFPAY ==
[2021-12-31 08:27] VITALS: BMI 22.1
--- NOTE | 2021-12-31 08:34 | PC.NURSE ---
Report to the Outpatient Waiting Room, entrance under the green pavilion located off [facility], at time _0830 on date _01/02/22. OR Time: _1030. - You and your visitor will be asked a series of questions to screen for COVID 19 for your protection. - Only one visitor is allowed at this time. - The patient visitor is requested to leave or wait in car when not with patient. - A mask is required within the hospital. Patients may have clear liquids (water, carbonated beverages, clear teas, apple juice) until 3 hours prior to surgery with a maximum of 20 ounces. - No food from midnight until time of surgery - Infants may have breast milk until 4 hours before surgery, formula 6 hours prior to surgery. - Children will be allowed to drink immediately following surgery. If applicable, please bring a bottle or sippy cup to assist with drinking. Juice, water, soda, and popsicles are readily available. For infants on formula, please bring formula the day of surgery. Pacifiers are allowed. Take the following medications with a SIP of water the morning of surgery: ALPRAZOLAM IF NEEDED Medications to discontinue per physician NONE Date to take last dose Please no make-up, nail nicaraguan, hairspray, perfume, deodorant, or body powder the day of surgery. No jewelry (including any body piercings) or valuables the day of surgery, leave them at home. Please take a shower or bath the night before, or the morning of, surgery with an antibacterial soap. Wear comfortable, loose fitting clothing. Children are encouraged to wear pajamas. - Jewelry must be removed prior to entering the operating room. Rings and piercings that are not removed may be cut off. - The hospital will not accept responsibility for valuables. - Please leave all valuables, including medications, at home the day of surgery. If you are going home after surgery, a licensed high lift driver must drive you home. - NO public transportation without another adult. - We recommend that an adult stay with you for 24 hours following discharge. - We also recommend that you do not drive, make important decision, drink alcoholic beverages, or take any drugs that were not prescribed by your health care provider for at least 24 hours after your discharge time. For Pediatric surgeries, we recommend two adults accompany the child home (only one inside the building at this time). Follow any additional instructions given to you from your surgeon. If you or anyone in your household have experienced Covid symptoms in the past week, please notify your surgeon or the nurse liaison at the phone number below for possible testing. Telephone instructions given to PATIENT____and asked if any additional questions and then verbalized understanding. Patient advised to call surgeon office or pre surgery nurse liaison [phone] if any additional questions.
--- NOTE | 2022-01-01 11:03 | P.PNAN_ITS ---
Anes - Initial Pre Proc Eval Procedure: Operation Date: 01/02/22 13:30 Proposed Procedures p Left Wrist Hardware Removal - Fernie Arellano MD Date/Time: 01/01/22 11:03 Surgeon: Fernie Arellano MD Pre Op Diagnosis: Painful Orthopedic Hardware Lt Wrist Patient Data Age: 56 Gender: F Height: 1.8 m Weight: 72 kg Allergies Allergy/AdvReac Type Severity Reaction Status Date / Time No Known Allergies Allergy Verified 12/31/21 08:27 Home Medications Medication Instructions Recorded Confirmed Type alprazolam 1 mg tablet 1 mg PO BID PRN Anxiety #60 tabs 12/24/21 12/31/21 Rx Patient hx anesthesia problems: none Family hx anesthesia problems: none Results Review: All pre-operative results and documents have been reviewed as part of the pre- operative evaluation. [facility] Past Medical History Medical History Angina at rest Anxiety BMI 22.0-22.9, adult BMI 23.0-23.9, adult BMI 24.0-24.9, adult Cough Elevated hemoglobin History of atypical hyperplasia of breast Hx of malignant neoplasm of breast Patella-femoral syndrome Renal stones Surgical complication involving ear Tobacco abuse Tobacco abuse Surgical History Surgical History H/O left wrist surgery History of ear surgery History of lithotripsy History of lumpectomy of left breast History of partial hysterectomy Hx of cholecystectomy Hx of esophagogastroduodenoscopy Hx of tubal ligation Family History Family History Sibling Cerebrovascular accident Epilepsy Sibling Esophageal cancer Lung cancer Father Acute myocardial infarction Other Breast cancer Mother Sibling No problems noted. 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 Informed Consent: The patient's anesthetic plan and its attendant risks and benefits were discussed with the patient/family/POA. Questions were solicited and answers provided to the satisfaction of the patient/family/POA.
[2022-01-02] VITALS (7 sets, daily range): BP systolic 104–124; BP diastolic 51–87; PULSE 68–84; RESP 12–16; TEMP 36.1–37.1; O2SAT 96–100
--- NOTE | ~2022-01-02 | XR_ITS ---
EXAMINATION: XR surgery orthopedic DATE: 01/02/2022 11:35 INDICATION: Left wrist orthopedic instrumentation removal TECHNIQUE: 4 fluoroscopic images of the left wrist were obtained during procedure performed by Dr. Kayce bullard. Radiologist was not present for the imaging or procedure. The amount of fluoroscopy time us ed during this procedure was 0.2 minutes. COMPARISON: 10/03/2021 FINDINGS: Chronic healed previously internally fixed fracture of the distal left radius which appears of healed in near-anatomic alignment aside from 3-4 mm ulnar variance. The instrumentation is been removed wit h residual lucency along the pelvis of the intramedullary leda and fixation screws. No retained metall ic foreign bodies. No acute fracture. IMPRESSION: 1. No acute osseous abnormality or retained foreign bodies post removal of internal fixation instrume ntation at a healed distal left radial fracture. Reviewed, dictated and finalized at location A. IMPRESSION: 1. No acute osseous abnormality or retained foreign bodies post removal of inte rnal fixation instrumentation at a healed distal left radial fracture.
--- NOTE | 2022-01-02 07:24 | WPDHPUPDATE1 ---
History and Physical Update Update Date/Time: 01/02/22 07:24 History and Physical has been reviewed, including an updated exam of the patient. There are NO changes in the patient's condition. Risks, benefits, and alternatives have been discussed and questions answered. Patient agrees to proceed with procedure.
[2022-01-02] MEDS: ACETAMINOPHEN 500 MG TABLET 1000 MG PO (09:10)
[2022-01-02] MEDS: LACTATED RINGERS 1,000 ML 30 ML IV CONT ×2 (09:18→11:43)
[2022-01-02] MEDS: KETOROLAC 15 MG/ML VIAL (*BKC) IV PUSH (09:53)
[2022-01-02] MEDS: ceFAZolin 2 GM/D5W 50 ML 2 GM/50 ML BAG IVPB (10:05)
[2022-01-02] MEDS: BUPIVACAINE/EPINEPHRINE 0.25% 10 ML VIAL 20 ML INFILTRATE (10:37)
--- NOTE | 2022-01-02 11:54 | P.OP_ITS ---
Procedure Note - Detailed Date of Procedure 01/02/22 Pre-op Diagnosis Painful retained hardware left wrist status post ORIF distal radius fracture with intramedullary device, (micro nail). Post-op Diagnosis Same Procedure Performed Removal of painful retained deep hardware left wrist status post ORIF. Surgeon Fernie Arellano MD Wearing Apparel Assembler Fariha Hays PA-C Anesthesia General Findings The proximal aspect of the nail was slightly proud at the stylus causing stenosis and irritation of the extensor tendons. The void left after nail removal appeared to potentially compromise the support for the radial styloid. It was elected to place cancellous bone graft. Description of Procedure Preoperative antibiotics were given. A general anesthetic was administered. Score% Marcaine was used perioperatively for additional pain management. Limb was exsanguinated and the tourniquet inflated to 250 mL of mercury. The previous radial styloid incision was opened. Care was taken to protect the subcutaneous neurovascular structures. Biplanar fluoroscopy was used to accurately identify the implants. The proximal styloid was carefully dissected to reveal the proximal nail and screws. The screws were removed. The dorsal locking screws were removed through stab incisions at the dorsal distal radius. Careful blunt dissection was performed. The nail was removed without difficulty. The metaphyseal bone void was filled with cancellous bone chips. The wound was carefully irrigated. Meticulous hemostasis obtained after release of the tourniquet. The subcutaneous tissues were closed with 3-0 Monocryl suture. The skin incisions were closed with interrupted 3-0 Prolene suture. Sterile dressing with splint and plaster were applied. The patient was extubated and brought to the recovery room in stable condition. There were no complications. Estimated Blood Loss 1 Drains No Pathology None sent Complications No immediate complications Condition Stable Disposition PACU [facility] Billing Surgery - Charge Forward: Surgery Billing
[2022-01-02] MEDS: fentaNYL CITRATE INJ (*CRX) 100 MCG/2 ML VIAL 25 MCG IV PUSH ×2 (12:22→12:25)
[2022-01-02] MEDS: oxyCODONE HCL (*CRX) 5 MG TAB IR PO (12:50)
== END 2022-01-02 13:30 | disposition home or self-care (01) ==
PROVIDERS: PCP Family Medicine; Visit Provider Orthopaedic Surgery
PROC: (CPT 20694; principal; 2022-01-02 10:30)
DX: T84.84XA Pain due to internal orthopedic prosthetic devices, implants and grafts, initial encounter (principal); M25.532 Pain in left wrist; G90.512 Complex regional pain syndrome I of left upper limb; Y83.8 Other surgical procedures as the cause of abnormal reaction of the patient, or of later complication, without mention of misadventure at the time of the procedure; F41.9 Anxiety disorder, unspecified; F17.210 Nicotine dependence, cigarettes, uncomplicated
CPT/HCPCS: 20680; 99199; A9270; C1713; J0690; J1100; J1885; J2250; J2370; J2405; J2704; J3010; J7120

== ENCOUNTER 2022-01-14 16:24 | Outpatient (CLI) | payer OTHER, SELFPAY ==
--- NOTE | ~2022-01-14 | MM_ITS ---
EXAMINATION: MM screening hannah BI w larissa HISTORY: Screening TECHNIQUE: Craniocaudal and mediolateral oblique 3-D tomosynthesis images were obtained and synthetic 2-D images were generated. CAD analysis was submitted and interpreted. COMPARISON: Comparison to multiple prior studies sequentially, with oldest reviewed study dated 08/2014. BREAST PARENCHYMAL COMPOSITION: There are scattered areas of fibroglandular density. FINDINGS: There are benign-appearing bilateral breast calcifications. There is no evidence of suspici ous mass, calcification, or architectural distortion to suggest malignancy in either breast. There preston s been no suspicious interval change. IMPRESSION: 1. No mammographic evidence of malignancy. 2. Recommend routine screening mammography in one year. BI-RADS Category 1: Negative Reviewed, dictated and finalized at location L.
== END 2022-01-14 16:25 | disposition home or self-care (01) ==
LOC: ANHIMG 16:25
PROVIDERS: PCP Family Medicine; Visit Provider Obstetrics & Gynecology
DX: Z12.31 Encounter for screening mammogram for malignant neoplasm of breast (principal)
CPT/HCPCS: 77063; 77067

== ENCOUNTER 2022-07-07 09:36 | Outpatient (CLI) | payer OTHER, SELFPAY ==
--- NOTE | ~2022-07-07 | CT_ITS ---
EXAMINATION: CT lung screening DATE: 07/07/2022 09:51 INDICATION: tobacco abuser TECHNIQUE: Computed tomography (CT) of the chest was performed without intravenous contrast. Addition al 3D reconstructions utilizing coronal maximum intensity projection (MIP) were performed. Automated exposure control and iterative reconstruction technique were employed. The dose-length product was 70 .66 mGy-cm. COMPARISON: None FINDINGS: Mild paraseptal and upper lung predominant emphysema. No significant change in numerous scattered sma ll bilateral pulmonary nodules, the majority calcified consistent with old granulomatous disease. A f ew of the smaller <2 mm nodule are not definitively calcified. No new or enlarging pulmonary nodules identified. Additional unchanged mild scattered linear discoid atelectasis/scarring in the bilateral lower lobes, right middle lobe and lingula. No pulmonary edema, pneumonia or pleural effusion. Heart size is normal. Minimal atherosclerotic coronary artery calcification along the left anterior descend ing coronary artery. No pericardial effusion. Thoracic aorta is normal in caliber. No pathologically enlarged thoracic lymphadenopathy. Multiple nonobstructing stones in the inferior calyces of the left kidney the largest measuring up to 6 mm. There are few small region of cortical scarring in the left kidney likely sequela of prior infection or infarction. Moderate thoracic spondylosis with chronic m ild anterior wedging of a few mid thoracic vertebral bodies. IMPRESSION: 1. Lung-RADS category 2: Benign appearance or behavior. Continue annual screening with noncontrast lo w-dose chest CT in 12 months. Reviewed, dictated and finalized at location A. S SELECTOR IMPRESSION: 1. Lung-RADS category 2: Benign appearance or behavior. Continue annual screeni ng with noncontrast low-dose chest CT in 12 months.
== END 2022-07-07 09:37 | disposition home or self-care (01) ==
LOC: ANHIMG 09:39
PROVIDERS: PCP Family Medicine; Visit Provider Nurse Practitioner Family
DX: Z12.2 Encounter for screening for malignant neoplasm of respiratory organs (principal); F17.210 Nicotine dependence, cigarettes, uncomplicated
CPT/HCPCS: 71271

== ENCOUNTER 2022-07-09 09:01 | Outpatient (CLI) | payer OTHER, SELFPAY ==
[2022-07-09 09:16] LABS: Hematocrit 46.4 % (37.0-47.0); Hemoglobin 15.8 g/dL (12.0-15.0); Mean Corpuscular HGB Conc 34.1 g/dl (32-36); Mean Corpuscular Hemoglobin 32.4 pg (26-34); Mean Corpuscular Volume 95.3 fl (80-100); Mean Platelet Volume 9.6 fl (7.4-10.4); Platelet Count Result 236 k/mm3 (150-375); Red Blood Count 4.87 M/mm3 (4.2-5.4); White Blood Count 8.4 K/mm3 (4.5-10.0)
[2022-07-09 09:27] LABS: Alanine Aminotransferase 20 U/L (6-35); Albumin Level 4.3 g/dL (3.5-5.1); Alkaline Phosphatase 74 U/L (38-126); Anion Gap 7 mmol/L (8-16); Aspartate Amino Transferase 27 U/L (14-36); Bilirubin,Total 0.6 mg/dL (0.2-1.3); Blood Urea Nitrogen 14 mg/dL (7-17); Carbon Dioxide 28 mmol/L (22-30); Chloride 107 mmol/L (98-107); Cholesterol 186 mg/dL (0-200); Estimated Glomerular Filt Rate > 60; Glucose 96 mg/dL (65-110); HDL Direct 52 mg/dL; Potassium 3.8 mmol/L (3.4-5.0); Sodium 142 mmol/L (137-145); Triglycerides 119 mg/dL (<150)
[2022-07-09 09:39] LABS: LDL Cholesterol Direct 97 mg/dL
[2022-07-09 10:33] LABS: Vitamin D 25 Hydroxy 52.1 ng/mL
== END 2022-07-09 09:02 | disposition home or self-care (01) ==
LOC: ANHLAB 09:02
PROVIDERS: PCP Family Medicine; Visit Provider Nurse Practitioner Family
DX: E55.9 Vitamin D deficiency, unspecified (principal); F41.9 Anxiety disorder, unspecified; E78.5 Hyperlipidemia, unspecified; R63.4 Abnormal weight loss
CPT/HCPCS: 36415; 80053; 80061; 82306; 84443; 85027

== ENCOUNTER 2022-09-10 00:56 | Day surgery (SDC) | payer OTHER, SELFPAY ==
[2022-09-03 10:30] VITALS: BMI 21.8
--- NOTE | 2022-09-09 14:05 | PM.HPGS ---
History of Present Illness History of Present Illness Consent: Risks, benefits, and alternatives have been discussed and questions answered. Patient agrees to proceed with procedure. Chief complaint: hx colon polyps Narrative: Mayra Delgado is a 56 year old female who had multiple polyps removed about 3 years ago. Review of Systems Review of Systems: All systems reviewed & are unremarkable except as noted in HPI and below PMFSH Past Medical History Medical History Angina at rest Anxiety BMI 20.0-20.9, adult BMI 22.0-22.9, adult BMI 23.0-23.9, adult BMI 24.0-24.9, adult Cough Elevated hemoglobin History of atypical hyperplasia of breast Hx of malignant neoplasm of breast Patella-femoral syndrome Renal stones Surgical complication involving ear Tobacco abuse Tobacco abuse Surgical History Surgical History H/O left wrist surgery History of ear surgery History of lithotripsy History of lumpectomy of left breast History of partial hysterectomy Hx of cholecystectomy Hx of esophagogastroduodenoscopy Hx of tubal ligation Family History Family History Sibling Cerebrovascular accident Epilepsy Sibling Esophageal cancer Lung cancer Father Acute myocardial infarction Other Breast cancer Mother Sibling No problems noted. Social History Social History Smoking packs per day: 1 Smoking cigarettes per day: 20.0 Years smoked: 40 Smoking pack-years: 40.00 Smoking status: Former smoker Tobacco type: cigarettes Second hand tobacco smoke exposure: Yes Alcohol intake: never Substance use: never Substance use type: does not use Lack of Transportation: No Lack of Food: Never True Current Housing: I Have Housing Concerned About Future Housing: No Difficulty Paying Gas/Electric Bills: No Difficulty Paying for Meds: No Currently Unemployed: No Education: High School Diploma/GED Living arrangements: with family Occupation/Education: occupation 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 [employer] Gender identity (if verbalized by the patient): Female Sexual Orientation (if Verbalized by the Patient): Straight or Heterosexual Spiritual care concerns: No Meds Home Medications and Allergies Home Medications Medication Instructions Recorded Confirmed Type fluticasone propionate 50 1 spray intranasal DAILY #16 grams 03/24/22 09/03/22 Rx mcg/actuation nasal spray,suspension nicotine 21 mg/24 hr daily 1 patch transdermal DAILY #28 ea 08/19/22 09/03/22 Rx transdermal patch alprazolam 1 mg tablet 1 mg PO BID PRN Anxiety #60 tabs 08/24/22 09/03/22 Rx omeprazole 40 mg capsule,delayed 40 mg PO DAILY 09/03/22 09/03/22 History release Allergies Allergy/AdvReac Type Severity Reaction Status Date / Time No Known Allergies Allergy Verified 09/10/22 06:54 Exam Const: General: alert Orientation/consciousness: patient oriented x3 Resp: Auscultation: clear to auscultation bilaterally Cardio: Rhythm: regular rhythm GI: GI Palp: Yes Soft to palpation and No Tenderness to palpation present (GI) Neuro: General: patient oriented x3 Assessment and Plan Assessment and plan (1) Encounter for screening colonoscopy: Code(s): Z12.11 - Encounter for screening for malignant neoplasm of colon Status: Acute Assessment and Plan: Colonoscopy with possible biopsy or polypectomy or cautery or injection of substances.
[2022-09-10 06:55] VITALS: BP 109/70; PULSE 84; RESP 20; TEMP 36.1; O2SAT 100
[2022-09-10] MEDS: LACTATED RINGERS 1,000 ML 150 ML IV CONT (07:08)
--- NOTE | 2022-09-10 07:39 | WPDANESEPPF ---
Anes - Initial Pre Proc Eval Procedure: Operation Date: 09/10/22 08:00 Proposed Procedures p Colonoscopy - Gabriel Chou MD Date/Time: 09/10/22 07:39 Surgeon: Gabriel Chou MD Pre Op Diagnosis: hx colon polyps Patient Data Age: 56 Gender: F Height: 1.78 m Weight: 67.8 kg Last Vital Signs Temp 97 F L 09/10/22 06:55 Pulse 84 09/10/22 06:55 Resp 20 09/10/22 06:55 BP 109/70 09/10/22 06:55 Pulse Ox 100 09/10/22 06:55 O2 Del Method Room Air 09/10/22 06:55 Allergies Allergy/AdvReac Type Severity Reaction Status Date / Time No Known Allergies Allergy Verified 09/10/22 06:54 Home Medications Medication Instructions Recorded Confirmed Type fluticasone propionate 50 1 spray intranasal DAILY #16 grams 03/24/22 09/03/22 Rx mcg/actuation nasal spray,suspension nicotine 21 mg/24 hr daily 1 patch transdermal DAILY #28 ea 08/19/22 09/03/22 Rx transdermal patch alprazolam 1 mg tablet 1 mg PO BID PRN Anxiety #60 tabs 08/24/22 09/03/22 Rx omeprazole 40 mg capsule,delayed 40 mg PO DAILY 09/03/22 09/03/22 History release Patient hx anesthesia problems: none Family hx anesthesia problems: none Results Review: All pre-operative results and documents have been reviewed as part of the pre-operative evaluation. [facility] Past Medical History Medical History Angina at rest Anxiety BMI 20.0-20.9, adult BMI 22.0-22.9, adult BMI 23.0-23.9, adult BMI 24.0-24.9, adult Cough Elevated hemoglobin History of atypical hyperplasia of breast Hx of malignant neoplasm of breast Patella-femoral syndrome Renal stones Surgical complication involving ear Tobacco abuse Tobacco abuse Surgical History Surgical History H/O left wrist surgery History of ear surgery History of lithotripsy History of lumpectomy of left breast History of partial hysterectomy Hx of cholecystectomy Hx of esophagogastroduodenoscopy Hx of tubal ligation Family History Family History Sibling Cerebrovascular accident Epilepsy Sibling Esophageal cancer Lung cancer Father Acute myocardial infarction Other Breast cancer Mother Sibling No problems noted. Social History Social History Smoking packs per day: 1 Smoking cigarettes per day: 20.0 Years smoked: 40 Smoking pack-years: 40.00 Smoking status: Former smoker Tobacco type: cigarettes Second hand tobacco smoke exposure: Yes Alcohol intake: never Substance use: never Substance use type: does not use Lack of Transportation: No Lack of Food: Never True Current Housing: I Have Housing Concerned About Future Housing: No Difficulty Paying Gas/Electric Bills: No Difficulty Paying for Meds: No Currently Unemployed: No Education: High School Diploma/GED Living arrangements: with family Occupation/Education: occupation 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 [employer] Gender identity (if verbalized by the patient): Female Sexual Orientation (if Verbalized by the Patient): Straight or Heterosexual Spiritual care concerns: No Anes - Eval Final PreProcedure Day of Procedure 09/10/22 07:39 Patient weight: normal Heart: regular rate and rhythm Lungs: clear to auscultation Airway: Mallampati scale class II Neurological: alert and oriented Last oral intake: >/= 8 hours ASA classification: II Emergent: no Anesthetic plan: proceed Anesthesia type and monitoring: general GIVS and standard monitoring Results Review: All pre-operative results and documents have been reviewed as part of the pre-operative evaluation. Informed Consent: The patient's anesthetic plan and its attendant risks and benefits were discussed
[2022-09-10 08:21] VITALS: BP 101/47; PULSE 74; RESP 18; O2SAT 96
[2022-09-10 08:31] VITALS: BP 104/53; PULSE 68; RESP 18; O2SAT 100
[2022-09-10 08:41] VITALS: BP 107/61; PULSE 58; RESP 18; O2SAT 100
== END 2022-09-10 08:48 | disposition home or self-care (01) ==
PROVIDERS: PCP Family Medicine; Visit Provider Internal Medicine Gastroenterology
PROC: 0DJD8ZZ Inspection of Lower Intestinal Tract, Via Natural or Artificial Opening Endoscopic (ICD-10-PCS; CPT 45378; principal; 2022-09-10 08:00)
DX: Z12.11 Encounter for screening for malignant neoplasm of colon (principal); Z86.010 Personal history of colon polyps; Z87.891 Personal history of nicotine dependence; F41.9 Anxiety disorder, unspecified
CPT/HCPCS: 45378; J2704; J7120

== ENCOUNTER 2023-03-26 08:47 | Outpatient (CLI) | payer OTHER, SELFPAY | END 2023-03-26 08:48 | disposition home or self-care (01) | PROVIDERS: PCP Family Medicine | DX: H90.A31 Mixed conductive and sensorineural hearing loss, unilateral, right ear with restricted hearing on the contralateral side (principal) | CPT/HCPCS: 99199 ==

== ENCOUNTER 2023-05-14 10:46 | Outpatient (CLI) | payer OTHER, SELFPAY | END 2023-05-14 10:47 | disposition home or self-care (01) | LOC: ANHAUDASC 10:47 | PROVIDERS: PCP Family Medicine | DX: H90.6 Mixed conductive and sensorineural hearing loss, bilateral (principal) | CPT/HCPCS: 92557; 92567 ==

== ENCOUNTER 2024-11-11 19:21 | Emergency (ER) | payer OTHER, SELFPAY ==
--- OUTSIDE RECORDS SUMMARY | 2024-11-11 19:23 | XMS_ITS | CONTINUITY OF CARE DOCUMENT ---
Author Name osmanyshahida osmanyshahida Address Unknown Organization [facility] Address [address] [place] [address] Phone [phone] Care Team Providers Care [employer] Name Role Phone Nat GARIBAY, Ben Unavailable IDANIA GARIBAY, WOOD F Unavailable [phone] IDANIA GARIBAY WOOD F Unavailable [phone] PROBLEMS Condition Status Date Provider Notes Tobacco abuse active Darryl Reyes MD CHEST PAIN active Darryl Reyes MD Cardiovascular screening active Darryl Reyes MD Dyslipidemia active Darryl Reyes MD Abnormal electrocardiogram active Ben salvador MD ENCOUNTERS Date Type Provider Location Encounter Diag nosis - In-person encounter Office Visit Ben Johns MD [facility] - In-person encounter Office Visit Ben Johns MD [facility] Abnormal electrocardiogram - In-person encounter Office Visit Ben Johns MD [facility] - In-person encounter Office Visit Darryl Reyes MD [facility] Cardiovascular screeningDyslipidemia - In-person encounter Office Visit Darryl Reyes MD [facility] Tobacco abuseCHEST PAIN VITAL SIGNS Date Observation Value Provider Body Mass Index (Ratio) 24.27 kg/m2 Thiago Johns MD blood pressure, cuff size regular An iyah Watson blood pressure, diastolic 81 mm[Hg] Marianela Watson blood pressure, systolic 101 mm[Hg] Amalia Watson oxygen saturation, oximetry 99 % Cathie Watson respiratory rate E&M 12 /min Cathie Watson pulse rate 68 /min Cathie Watson weight E&M 174 [lb_av] Cathie Watson height E&M 71 [in_i] Cathie Watson Body Mass Index (Ratio) 23.57 kg/m2 Thiago Johns MD blood pressure, diastolic -1 mm[Hg] Damaris nkLog blood pressure, systolic 112 mm[Hg] Bouchra kLog blood pressure, diastolic 72 mm[Hg] Glynn rret blood pressure, systolic 112 mm[Hg] Jar ret pulse rate 68 /min Sukhi y blood pressure, cuff size regular Glynn rret oxygen saturation, oximetry 97 % Sukhi respiratory rate E&M 14 /min Sukhi weight E&M 169 [lb_av] Sukhi y height E&M 71 [in_i] Sukhi y Body Mass Index (Ratio) 25.24 kg/m2 Thiago Johns MD blood pressure, diastolic 69 mm[Hg] Naga Mendoza blood pressure, systolic 115 mm[Hg] Grace génesis Mendoza blood pressure, cuff size regular Cy toan Mendoza pulse rate 72 /min Vicenta mcknight oxygen saturation, oximetry 96 % Vicenta Mendoza respiratory rate E&M 16 /min Vicenta Mendoza weight E&M 181 [lb_av] Vicenta Mattson l height E&M 71 [in_i] Vicenta Mattson l Body Mass Index (Ratio) 26.50 kg/m2 Oleksandr maradiaga Lisa blood pressure, diastolic, left arm 70 mm [Hg] [facility], systolic, left arm 100 mm [Hg] [facility] blood pressure, diastolic, right arm 80 m m[Hg] Jade [place] blood pressure, systolic, right arm 110 m m[Hg] La Russell [place] blood pressure, diastolic 70 mm[Hg] [facility] [place] blood pressure, systolic 100 mm[Hg] Stephanie russell Chama oxygen saturation, oximetry 98 % [facility] respiratory rate E&M 16 /min [facility] pulse rate 64 /min [facility] weight E&M 190 [lb_av] La Russell [place] height E&M 71 [in_i] La Russell [place] Body Mass Index (Ratio) 25.66 kg/m2 Oleksandr maradiaga [facility] weight E&M 184 [lb_av] Chester [facility] erg height E&M 71 [in_i] [facility] erg Body Mass Index (Ratio) 34.76 kg/m2 Oleksandr hiren [facility] blood pressure, diastolic 72 mm[Hg] Da terrence [place] blood pressure, systolic 112 mm[Hg] Dac ia Jhoan oxygen saturation, oximetry 96 % Jaylin Jhoan respiratory rate E&M 16 /min Jaylin V oss pulse rate 83 /min Jaylin Jhoan weight E&M 184 [lb_av] Jaylin Jhoan height E&M 61 [in_i] Jaylin Jhoan ALLERGIES No Known Drug Allergies RESULTS Date Observation Value Provider Reference Range Interpretation Location lipoprotein, beta, serum, point, quantitative, calculated 104 mg/dL [facility] 0-99 High very low density lipoproteins 33 mg/dL [facility] 5-40 HDL cholesterol, serum 54 mg/dL [facility] >39 triglyceride, serum, random 166 mg/dL [facility] 0-149 High cholesterol, serum 191 mg/dL [facility] [phone]/05/16 calcium, serum 9.5 mg/dL [facility] 8.7-10.2 carbon dioxide, venous blood 19 mmol/L [facility] 20-29 Low chloride, serum 106 mmol/L [facility] 96-106 potassium, serum 4.8 mmol/L [facility] 3.5-5.2 sodium, serum 143 mmol/L [facility] [phone]/05/16 urea nitrogen/creatini ne ratio, serum 15 [facility] 9-23 eGFR if 119 mL/min/{1. 73_m2} [facility] >59 eGFR if not 103 mL/min/{1. 73_m2} [facility] >59 creatinine, serum 0.62 mg/dL [facility] 0.57-1.00 urea nitrogen, blood 9 mg/dL [facility] 6-24 blood glucose, random 77 mg/dL [facility] 65-99 HISTORY OF MEDICATION USE Medication Status Instructions Dates Provider Indications Com ments ISOSORBIDE MONONITRATE 30MG ER TABS completed TAKE 1 TABLET BY MOUTH EVERY DAY 2 - 4 Ben Johns MD nitroglycerin 0.4 mg tablet, sublingual completed Take 1 tablet under tongue as needed 4 - 6 Ben Johns MD ISOSORBIDE DINITRATE 30 MG ORAL TABLET completed take one tablet daily 4 - 5 Marry Dunn SOCIAL HISTORY Date Observation Value Provider alcohol use, type occasionally [place]ov[place] alaniz alcohol use yes [place] Vieyra passive cigarette sm abdiel exposure yes [place]ov[place] Vieyra smoking/tobacco cess ation, patient education and counseling yes Clovis Vieyra number of years as a smoker 31 a Clovis Vieyra smoking history, tot al pack/day 1 Clovis Vieyra cigarette use yes Clovis Fowlerbishop smoking status Current every day smoker R ezioalbert Vieyra alcohol use, type occasionally Ben hawk MD alcohol use yes Ben So passive cigarette sm abdiel exposure yes Ben Johns MD smoking/tobacco cess ation, patient education and counseling yes Ben Johns MD number of years as a smoker 31 a Ben Johns MD smoking history, tot al pack/day 1 Ben Johns MD cigarette use yes Ben Johns MD smoking status Current every day smoker R rahul Johns MD passive cigarette sm abdiel exposure yes Ben Johns MD social history reviewed E&M revi ewed - no changes required Ben Johns MD social history E&M Marital Statu s: Kaitlyn gonzalesrebekah: 2 O ccupation: Unemployed Smoking History: P bob currently smokes every day. P atjonas has been counseled to quit. Ben Johns MD smoking/tobacco cess ation, patient education and counseling yes Vicenta Mendoza number of years as a smoker 31 a Vicenta Mendoza smoking history, tot al pack/day 1 Vicenta Mendoza cigarette use yes Vicenta sandoval smoking status Current every day smoker C rizwana Mendoza social history reviewed E&M revi ewed - no changes required Chester Gonzalez number of grandchildren Darryl Reyes MD [place] alcohol use, type occasionally La Russell In [place] smoking/tobacco cess ation, patient education and counseling yes Jade [place] alcohol use yes Jade [place] number of years as a smoker 31 a Chester Gonzalez smoking history, tot al pack/day 1 Jade [place] cigarette use yes Jade [place] smoking status Current every day smoker Chris [place] number of years as a smoker 30 a Darryl Reyes MD social history reviewed E&M revi ewed - no changes required Darryl Reyes MD social history E&M Smoking Histo ry: P atient currently smokes every day. P atient has been counseled to quit. Darryl Reyes MD smoking/tobacco cess ation, patient education and counseling yes Darryl Reyes MD alcohol use, type occasionally Jaylin Jhoan alcohol use yes Jaylin Jhoan smoking history, tot al pack/day 1 Jaylin Jhoan cigarette use yes Jaylin Jhoan smoking status Current every day smoker D acia Jhoan FAMILY HISTORY Family Member Condition Maternal Grandmother Family History of D iabetes: INSURANCE PROVIDERS Payer name Policy type / Coverage type [facility] MEDICAID (2) Medicaid [id number] ADVANCE DIRECTIVES Name Date DISCUSSED - NO DECISION MADE TREATMENT PLAN Date Name Performer Cardiology:Reviewed importance of diet and lifestyle modification. Clovis Vieyra Cardiology:Reviewed cessation Kenan Vieyra Cardiology:Stress test shows nor mal perfusion Clovis Vieyra Cardiology:Stress test shows nor mal perfusion Clovis Vieyra Cardiology:Needs str ess test in light of calcium on CT scan. Ben Johns MD Cardiology Ben Johns MD Cardiology Ben Johns MD Cardiology Ben Johns MD Cardiology follow up Ben mason MD Cardiology follow up Ben mason MD Cardiology follow up :Possibly spasm. Will d/c isosorbide and just go with sublingual Ntg prn. Ben Johns MD Cardiology:Orders: L IPID PANEL (7600) B ASIC METABOLIC PANEL W/EGFR (72784) Chester Gonzalez Cardiology:Advised to quit. Oleksandr Gonzalez Cardiology:No recurr ence. Her updated medication list for this problem includes: Isosorbide Mononitrate Er 30 Mg Oral Tablet Extended Release 24 Hour (Isosorbide mononitrate) ..... Take one tablet by mouth once daily Nitroglycerin 0.4 Mg Sublingual Tablet Sublingual (Nitroglycerin) ..... Take one tablet sub as needed Chester Lisa Cardiology New Patient:Encourage d to quit. Chester Lisa Cardiology New Patie nt:The pt had episodes of chest discomfort, cardiac cath was performed at [facility] and per report there was no significant CAD. She has been treated for coronary vasospasm with Isosorbide with resolution of her symptoms. Chester Gonzalez Date Name Stress Exercise Card iolite BASIC METABOLIC PANE L W/EGFR LIPID PANEL HISTORY OF PROCEDURES Procedure Date Procedure Name Provider Procedure Notes S tatus EKG Ben Johns MD complete d EKG Ben Johns MD complete d EKG Darryl Reyes MD completed EKG Darryl Reyes MD completed EKG Darryl Reyes MD completed
--- OUTSIDE RECORDS SUMMARY | 2024-11-11 19:23 | XMS_ITS | Clinical Summary ---
Author Organization [facility] Address [address], [address] [address] Phone Care Team Providers Care Business Analyst Sales Operations Name Role Phone Ashish Gomez MD Primary Care Provider [phone] Allergies Active Allergy Reactions Criticality Noted Date Comments Influenza Vaccines Unknown 08/04/2019 Medications isosorbide mononitrate (IMDUR) 30 MG TABLET SR 24 HR Take by mouth. 12/03/2016 Active ALPRAZolam (XANAX) 1 MG Tablet Take by mouth. 12/03/2016 Active anastrozole (ARIMIDEX) 1 MG Tablet Take 1 mg by mouth 04/26/2019 Active Family History Relation Name Status Comments Father Mother Social History Tobacco Use Types Packs/Day Years Used Date Smoking Tobacco: Every Day Cigarettes 1 35 Smokeless Tobacco: Never Alcohol Use Standard Drinks/Week Comments Yes 0 (1 standard drink = 0.6 oz pur e alcohol) Monthly AUDIT-C Answer Date Recorded Q1: How often do you have a drink containing alc ohol? Monthly or less 09/06/2019 Q2: How many drinks containi ng alcohol do you have on a typical day when you are drinking? 1 or 2 09/06/2019 Q3: How often do you have si x or more drinks on one occasion? Never 09/06/2019 PHQ-2 Answer Date Recorded Total Score - Questions 1-9 0 08/26 Education Answer Date Recorded What is the highest level of school you have completed or the highest degree you have received? 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 on file Not on file Not on file Last Filed Vital Signs Vital Sign Reading Time Taken Comments Blood Pressure 128/78 09/06/2019 2:21 PM CDT Pulse 76 09/06/2019 2:21 PM CDT Temperature 37 C (98.6 F) 09/06/2019 2:21 PM CDT Respiratory Rate 16 09/06/2019 2:21 PM CDT Oxygen Saturation 98% 09/06/2019 2:21 PM CDT Inhaled Oxygen Concentration - - Weight 81.2 kg (179 lb) 09/06/2019 2:21 PM CDT Height 177.5 cm (5' 9.88 ) 09/06/2019 2:21 PM CD T Body Mass Index 25.77 09/06/2019 2:21 PM CDT Plan of Treatment Health Maintenance Due Date Last Done Comments Hepatitis C Virus (HCV) Screening 1965 TdaP Immunization 1965 Hepatitis B Immunization (1 of 3 - 19+ 3-dose series) 1984 Zoster Immunization (1 of 2) 1984 Cologuard 09/30/2015 Immunochemical Fecal Occult Blood 09/30/2015 Pneumococcal Immunization (5 0+ years) (1 of 1 - PCV) 09/30/2015 SARS-COV-2 Immunization (2 - Eliseo risk series) 11/02/2020 10/05/2020 Colonoscopy 05/18/2022 05/18/2019 Colorectal Cancer Screening 05/18/2022 Respiratory Syncytial Virus (RSV) Immunization (Adult) (1 - 1-dose 75+ series) 2040 05/18/2019 Meningococcal Immunization (ACWY) Aged Out No longer eligible based on patient's age to complete this topic Rotavirus Immunization Aged Out No lo nger eligible based on patient's age to complete this topic Procedures Procedure Name Priority Date/Time Associated Diagnosis Comments HM COLONOSCOPY Routine 05/18/2019 from Last 3 Months or Most Recently Relevant to Health Maintenance Results * COLONOSCOPY (05/18/2019) Dustin Lomax DO PROCEDURE/MINOR SURGICAL ORDERA BLES Final Result from Last 3 Months or Most Recently Relevant to Health Maintenance Insurance MEDICAID [place] [employer] [facility] [employer] Care Teams Business Analyst Sales Operations Relationship Specialty Start Date End Date Ashish Gomez MD [address] [address] PCP - General Family Medicine 05/24/19
--- OUTSIDE RECORDS SUMMARY | 2024-11-11 19:23 | XMS_ITS | Clinical Summary ---
Author Organization [facility] Address [address] [place] [address] Care Team Providers Care Environmental Compliance Officer Name Role Phone Ashish Gomez MD Primary Care Provider [phone] Allergies No known active allergies Medications isosorbide mononitrate (IMDUR) 60 mg Extended Release 24 hour tablet TK 1 T PO D 6 09/13/2017 Ac tive ALPRAZolam (XANAX) 1 mg tablet TAKE ONE TABLET BY MOUTH TWICE A DAY NEEDED 2 10/12/2017 Active nicotine (NICODERM CQ) 21 mg/24 hr patch APPLY 1 PATCH TO SKIN QD AND REMOVE HS FOR 6 WEEKS 0 09/21/2017 Active raloxifene (EVISTA) 60 mg tablet Take 1 Tablet (60 mg) by mouth daily. 90 Tablet 11 09/02/2018 Active anastrozole (ARIMIDEX) 1 mg tablet Take 1 Tablet (1 mg) by mouth daily. 90 Tablet 4 04/26/2019 Active Active Problems Problem Noted Date Diagnosed Date Atypical ductal hyperplasia of right breast 10/26 Cigarette nicotine dependence without complicati on 11/05/2017 Family History Medical History Relation Name Comments Cancer Brother four alive two Healthy Father Other Mother Healthy Sister five Relation Name Status Comments Brother four alive two Alive Father Mother Sister five Alive Social History Tobacco Use Types Packs/Day Years Used Date Smoking Tobacco: Every Day Cigarettes 1 25 Smokeless Tobacco: Never Alcohol Use Standard Drinks/Week Comments No 0 (1 standard drink = 0.6 oz pur e alcohol) Comments No Sex and Gender Information Value Date Recorded Sex Assigned at Not on file Legal Sex Female 2:17 PM CDT Gender Identity Not on file Sexual Orientation Not on file Last Filed Vital Signs Vital Sign Reading Time Taken Comments Blood Pressure 94/65 04/26/2019 10:16 AM CDT Pulse 81 04/26/2019 10:16 AM CDT Temperature 36.6 C (97.8 F) 04/26/2019 10:16 AM CDT Respiratory Rate - - Oxygen Saturation 97% 04/26/2019 10:16 AM CDT Inhaled Oxygen Concentration - - Weight 81.4 kg (179 lb 8 oz) 04/26/2019 10:16 AM CDT Height 180.3 cm (5' 11 ) 04/26/2019 10:16 AM CDT Body Mass Index 25.04 04/26/2019 10:16 AM CDT Plan of Treatment Health Maintenance Due Date Last Done Comments DTAP/TDAP/TD VACCINES (1 - Tdap) 1984 HEPATITIS B VACCINES (1 of 3 - 19+ 3-dose series) 1984 HPV/Cotest (21-29) 1986 CERVICAL CANCER SCREENING 09/30/1995 HPV/Cotest (30-65) 09/30/1995 PAP SMEAR 09/30/1995 COLORECTAL SCREENING 2010 Colorectal Cancer Screening 2010 FIT-DNA Q 3 years 2010 FIT/FOBT Q 1 year 2010 Flex Sig/CT Colonography Q 5 years 2010 ZOSTER VACCINE (1 of 2) 09/30/2015 BREAST CANCER SCREENING 12/29/2019 12/29/19 19, 12/23/2017, 08/28/2014, Additional history exists INFLUENZA VACCINE (#1) 2024 Procedures Procedure Name Priority Date/Time Associated Diagnosis Comments MAMMOGRAM REPORT Routine 12/28/2018 from Last 3 Months or Most Recently Relevant to Health Maintenance Results * MAMMOGRAM REPORT (12/28/2018) us Abstract Provider MAMMO ORDERABLES Edited Result - Final [facility] from Last 3 Months or Most Recently Relevant to Health Maintenance Insurance [place] Care Teams Environmental Compliance Officer Relationship Specialty Start Date End Date Ashish Gomez MD [address] [place] [address] PCP - General Family Practice 11/05/17
--- OUTSIDE RECORDS SUMMARY | 2024-11-11 19:23 | XMS_ITS | Clinical Summary ---
Author Organization [facility] Address [address] [place] [address] Care Team Providers Care Retail Consultant Name Role Phone Ashish Gomez MD Primary Care Provider [phone] Allergies Active Allergy Reactions Criticality Noted Date Comments Chlorpheniramine-Phenylephrine Hives 08/04 Influenza Vaccines Unknown 08/04/2019 Medications ALPRAZolam 1 MG tablet 12/03/2016 Active clindamycin 1 % external solution MANI THIN LAYER EXT AA BID FOR 14 DAYS 04/07/2019 Active isosorbide mononitrate ER 30 MG 24 hr tablet 12/03/2016 Act teresa aspirin EC (ASPIR-LOW) 81 MG tablet 12/03/2016 Active ibuprofen 800 MG tablet TK 1 T PO TID WITH FOOD 03/10/2019 Active nicotine 21 MG/24HR 09/21/2017 Active nitroglycerin (NITROSTAT) 0.4 MG SL tablet 12/03/2016 Active raloxifene 60 MG tablet Take 60 mg by mouth daily. 09/02/2018 Active Active Problems Problem Noted Date Diagnosed Date Mixed conductive and sensori neural hearing loss of both ears 11/07/2018 Anxiety disorder, unspecified 10/20/2018 Apnea 10/20/2018 Recurrent acute serous otitis media of right ear 10/20/2018 ETD (Eustachian tube dysfunction), right 019 Mixed conductive and sensori neural hearing loss of right ear with restricted hearing of left ear 2018 Dietary counseling and surveillance 08/29/2018 Glenoid labrum tear 12/14/2017 Atypical ductal hyperplasia of right breast 10/26 Bilateral knee swelling 11/05/2017 Cigarette nicotine dependence without complicati on 11/05/2017 Right shoulder pain 11/05/2017 Traumatic arthritis of knee 09/02/2017 Calculus of kidney 12/07/2016 Small kidney, unspecified 12/07/2016 Gastroesophageal reflux disease 01/28/2010 Family History Medical History Relation Comments Stroke Brother Heart Father Stroke Father Diabetes Maternal Grandmother Diabetes Mother Relation Status Comments Brother Father (Age 39) Maternal Grandmother Mother Social History Tobacco Use Types Packs/Day Years Used Date Smoking Tobacco: Every Day Cigarettes 0.5 15 Smokeless Tobacco: Never Alcohol Use Standard Drinks/Week Comments Never 0 (1 standard drink = 0.6 oz pur e alcohol) AUDIT-C Answer Date Recorded Frequency of Alcohol Consumption Never 08/04/2019 Average Number of Drinks Not on file 020 Frequency of Binge Drinking Not on file 12/2019 Comments Unknown Sex and Gender Information Value Date Recorded Sex Assigned at Not on file Legal Sex Female 8:23 PM CDT Gender Identity Not on file Sexual Orientation Not on file Last Filed Vital Signs Vital Sign Reading Time Taken Comments Blood Pressure 128/70 08/04/2019 3:39 PM TABLET MAKING MACHINE OPERATOR Pulse 80 08/04/2019 3:39 PM TABLET MAKING MACHINE OPERATOR Temperature - - Respiratory Rate 18 08/04/2019 3:39 PM TABLET MAKING MACHINE OPERATOR Oxygen Saturation 98% 08/04/2019 3:39 PM TABLET MAKING MACHINE OPERATOR Inhaled Oxygen Concentration - - Weight 81.6 kg (180 lb) 08/04/2019 3:39 PM TABLET MAKING MACHINE OPERATOR Height 180.3 cm (5' 11 ) 08/04/2019 3:39 PM TABLET MAKING MACHINE OPERATOR Body Mass Index 25.1 08/04/2019 3:39 PM TABLET MAKING MACHINE OPERATOR Plan of Treatment Health Maintenance Due Date Last Done Comments Colorectal Cancer Screening Colonoscopy (10 Years) 1965 Annual Physical 1968 Hepatitis C 09/30/1983 DTaP, Tdap and Td Vaccines ( 1 - Tdap) 1984 Pneumococcal Vaccine: 50+ Ye ars (1 of 2 - PCV) 1984 Mammogram Screening 2005 Zoster Vaccines (1 of 2) 09/30/2015 COVID-19 Vaccine ( - 2023-2 5 season) 2024 Meningococcal B Vaccine Aged Out No l onger eligible based on patient's age to complete this topic Meningococcal Vaccine Aged Out No [place] keith eligible based on patient's age to complete this topic RSV Immunizations Under 20 Months Aged Out No longer eligible based on patient's age to complete this topic Insurance [facility] Care Teams Retail Consultant Relationship Specialty Start Date End Date Ashish Gomez MD [address] [place] [address] PCP - General FAMILY PRACTICE 08/04/19
--- OUTSIDE RECORDS SUMMARY | 2024-11-11 19:24 | XMS_ITS | Referral Summary ---
Author Organization [facility] al Address [address] [place] [address] Care Team Providers Care Logistics Lead Name Role Phone Ashish Gomez MD Primary Care Provider Allie Sue MD Unavailable [phone] Encounters Date Type Department Care Team Description 08/23/2024 Results Follow-Up [facility] [address] [place] [address] Allie Sue MD 08/23/2024 11:34 AM [employer]ATCHERY EMPLOYEE - 08/23/2024 11:59 PM HATCHERY EMPLOYEE Hospital Encounter [facility] [place] [facility] Bld[address] 1 [facility] [address] [place] [address] Breast cancer screening by mammogram; Encounter for screening mammogram for breast cancer Discharge Disposition: Discharge to home or self care 08/23/2024 12:30 PM HATCHERY EMPLOYEE Office Visit [facility] [place] [address] [place] [address] Fracisco Zaman MD Nicotine dependence, cigarettes, uncomplicated (Primary Dx); Pulmonary emphysema, unspecified emphysema type (HCC); Encounter for screening for lung cancer from Last 3 Months Allergies Active Allergy Reactions Criticality Noted Date Comments Chlorpheniramine-Phenylephrine Hives,Urticaria Medium 08/04/2019 Influenza Virus Vaccines Other (See comments) Low 0 08/04/2019 Medications ALPRAZolam (XANAX) 1 mg tablet TAKE 1 TABLET BY MOUTH TWICE DAILY NEEDED FOR ANXIETY. FOLLOW UP EVERY 3 MONTHS 3 Active fluticasone propionate (FLONASE) 50 mcg/actuation nasal spray Administer 2 sprays into affected nostril(s) daily 2 Active nicotine (NICODERM CQ) 21 mg APPLY 1 PATCH TO SKIN DAILY 3 Active omeprazole (PriLOSEC) 40 mg capsule Take 1 capsule (40 mg total) by mouth daily before breakfast 2 Active buPROPion SR (WELLBUTRIN SR) 150 mg 12 hr tablet Active albuterol HFA (PROVENTIL HFA,VENTOLIN HFA,PROAIR HFA) 90 mcg/actuation inhalerIndicatio ns:Nicotine dependence, cigarettes, uncomplicated,Pu lmonary emphysema, unspecified emphysema type (HCC),Encounter for screening for lung cancer Inhale 2 puffs every 6 (six) hours as needed for wheezing or shortness of breath 1 each 11 5 Active Active Problems Problem Noted Date Diagnosed Date Family history of breast cancer 08/26/2022 Encounter for screening mammogram for breast can cer 08/26/2022 Breast cancer screening, high risk patient 08/26 Tendinopathy of right rotator cuff 06/26/2020 Dyslipidemia 11/11/2018 Anxiety disorder, unspecified 10/20/2018 Apnea 10/20/2018 Recurrent acute serous otitis media of right ear 10/20/2018 Diffuse otitis externa of right ear 2018 Dryness of right ear canal 2018 ETD (Eustachian tube dysfunction), right 019 Mixed conductive and sensori neural hearing loss of right ear with restricted hearing of left ear 2018 Perforated tympanic membrane, right 2018 Sensorineural hearing loss ( SNHL) of left ear with restricted hearing of right ear 2018 Right chronic otitis media 08/29/2018 Acute pansinusitis 01/18/2018 Glenoid labrum tear 12/14/2017 Tobacco dependence syndrome 11/29/2017 Bilateral knee swelling 11/05/2017 Right shoulder pain 11/05/2017 Nasal congestion 10/05/2017 Traumatic arthritis of knee 09/02/2017 At risk for breast cancer 05/27/2017 Calculus of kidney 12/07/2016 Small kidney, unspecified 12/07/2016 Hyperlipidemia 04/14/2016 Palpitations 07/11/2015 Abnormal result of cardiovascular function study 06/07/2015 Chest pain 06/07/2015 Encounter for preventive health examination 08/26 Atypical ductal hyperplasia of right breast 08/26 Gastroesophageal reflux disease 01/28/2010 Lung nodules Social History Tobacco Use Types Packs/Day Years Used Date Smoking Tobacco: Former Cigarettes 1 40 0 06/28/1982 - 06/28/2022 Smokeless Tobacco: Never Tobacco Cessation:Counseling Given: Not Answered AUDIT-C Answer Date Recorded Frequency of Alcohol Consumption Not on file 12/08/2023 Q2: How many drinks containi ng alcohol do you have on a typical day when you are drinking? Patient does not drink Frequency of Binge Drinking Not on file 11/26 Comments No Sex and Gender Information Value Date Recorded Sex Assigned at Not on file Legal Sex Female 3:55 AM HATCHERY EMPLOYEE Gender Identity Not on file Sexual Orientation Not on file Last Filed Vital Signs Vital Sign Reading Time Taken Comments Blood Pressure 118/74 08/23/2024 12:10 PM HATCHERY EMPLOYEE Pulse 73 08/23/2024 12:10 PM HATCHERY EMPLOYEE Temperature 36.8 C (98.2 F) 08/23/2024 12:10 PM HATCHERY EMPLOYEE Respiratory Rate 18 08/23/2024 12:10 PM HATCHERY EMPLOYEE Oxygen Saturation 98% 08/23/2024 12:10 PM HATCHERY EMPLOYEE Inhaled Oxygen Concentration - - Weight 76.2 kg (168 lb) 08/23/2024 12:10 PM HATCHERY EMPLOYEE Height 175.3 cm (5' 9 ) 08/23/2024 12:10 PM HATCHERY EMPLOYEE Body Mass Index 24.81 08/23/2024 12:10 PM HATCHERY EMPLOYEE Plan of Treatment Not on file Procedures Procedure Name Priority Date/Time Associated Diagnosis Comments SCREENING MAMMOGRAM BILATERAL W ALBERT Schedule Routine, Read Routine (OP Routine) 08/23/2024 11:51 AM HATCHERY EMPLOYEE Breast cancer screening by mammogram Encounter for screening mammogram for breast cancer CT LUNG CANCER SCREENING Schedule Routine, Read Routine (OP Routine) 12/07/2023 10:47 AM CDT Nicotine dependence, cigarettes, uncomplicated Pulmonary emphysema, unspecified emphysema type (HCC) from Last 3 Months or Most Recently Relevant to Health Maintenance Results * Screening Mammogram Bilateral W Albert (08/23/2024 11:51 AM HATCHERY EMPLOYEE) Anatomical Region Laterality Modality Breast Bilateral Mammography Impressions 08/23/2024 11:56 AM HATCHERY EMPLOYEE BI-RADS ATLAS category (overall): 1 - Negative There is no mammographic evidence of malignancy. A 1 year screening mammogram is recommended. The patient has been or will be contacted. We recommend annual screening mammography for women at average risk of breast cancer beginning at age 40, based on guidelines of the [employer] (ACR Practice Parameter for the Performance of Screening and Diagnostic Mammography) and [employer]. For women with and elevated risk of breast cancer, please refer to the ACR Practice Parameter for specific screening recommendations. The patient will be entered into a reminder system with a target due date of 1 year for her next screening exam. Narrative 08/23/2024 11:56 AM HATCHERY EMPLOYEE Screening Mammogram Bilateral W Albert: 08/23/24 The study was acquired using full field digital technology and interpreted from soft copy. 2D digital mammographic views, as well as 3D digital tomosynthesis were performed in the CC and MLO projections. This study was resulted using Computer-Aided Detection (CAD). CLINICAL: Breast cancer screening by mammogram Encounter for screening mammogram for breast cancer. No relevant medical history has been documented for this patient. History of breast cancer in Father's Sister. COMPARISONS: 12/06/2023 MRI Breast Bilateral W WO Contrast 08/10/2023 Screening Mammogram Bilateral W Albert 11/30/2022 MRI Breast Bilateral W WO Contrast 01/14/2022 Breast Imaging Screening Outside Reference 06/19/2020 Breast Imaging Screening Outside Reference BREAST TISSUE: There are scattered areas of fibroglandular density. FINDINGS: No suspicious masses, suspicious calcifications, or other suspicious findings are seen within either breast. There has been no suspicious change. Allie Sue MD IMG MAMMO PROCEDURES Final Result * CT Lung Cancer Screening (12/07/2023 10:47 AM CDT) Anatomical Region Laterality Modality Chest N/A Computed Tomogra phy 12/08/2023 6:57 AM CDT Narrative 12/08/2023 7:08 AM CDT EXAM DESCRIPTION: CT LUNG CANCER SCREENING REASON FOR STUDY: Screening CT of the chest in a current smoker with a 41 pack year smoking history. Additional history: None. TECHNIQUE: Low dose CT scan of the chest was performed without intravenous contrast using helical scanning technique. The exam extends from the lung apices through the lung bases. Automatic exposure control was used as a dose optimization technique. NOTE: This study was performed for the specific purposes of lung cancer screening and is not an alternative to diagnostic chest CT. RADIATION DOSE: CT dose index volume (CTDIvol) = 2.86 mGy COMPARISON: Outside hospital CT dated 07/07/2022 FINDINGS: SMOKING RELATED LUNG DISEASE: Mild emphysema LUNG NODULES: Multiple calcified granulomas are noted. Stable 2 mm subpleural right upper lobe nodule, not definitively calcified (104). Other tiny subpleural right upper lobe nodules are also noted. Grossly stable 3 mm left apical nodule (51). Stable 2 mm left upper lobe nodule (62). OTHER: Thin linear atelectasis or scarring is noted within the medial right middle lobe, lingula and lower lobes. No new consolidation or significant ground-glass. No pulmonary edema. No mediastinal hilar lymphadenopathy. Borderline cardiomegaly. No significant effusion. Mild coronary calcification. The aorta is nonaneurysmal. No axillary lymphadenopathy or chest wall mass. Images of the upper abdomen demonstrate no gross abnormality. Bone windows demonstrate no suspicious lytic or sclerotic lesion. No acute fracture seen. IMPRESSION: 1. Grossly stable pulmonary nodules compared to 07/07/2022. Lung-RADS category 2: Benign appearance or behavior. Recommendation: Low dose Screening CT of chest in 12 months. THIS IS AN ELECTRONICALLY VERIFIED FINAL REPORT 12/08/2023 7:08 AM - Electronically signed by Jacky Chou M.D. AG: KARRI Report ID: [id number] Reading Location: [id number] Procedure Note Jacky Chou MD - 12/08/2023 EXAM DESCRIPTION: CT LUNG CANCER SCREENING REASON FOR STUDY: Screening CT of the chest in a current smoker with a41 pack year smoking history. Additional history: None. TECHNIQUE: Low dose CT scan of the chest was performed without intravenous contrast using helical scanning technique. The exam extends from the lung apices through the lung bases. Automatic exposure control was used as adose optimization technique. NOTE: This study was performed for the specific purposes of lung cancer screening and is not an alternative to diagnostic chest CT. RADIATION DOSE: CT dose index volume (CTDIvol) = 2.86 mGy COMPARISON: Outside hospital CT dated 07/07/2022 FINDINGS: SMOKING RELATED LUNG DISEASE: Mild emphysema LUNG NODULES: Multiple calcified granulomas are noted. Stable 2 mm subpleural right upper lobe nodule, not definitively calcified (104).Other tiny subpleural right upper lobe nodules are also noted. Grossly stable 3mm left apical nodule (51). Stable 2 mm left upper lobe nodule (62). OTHER: Thin linear atelectasis or scarring is noted within the medialright middle lobe, lingula and lower lobes. No new consolidation or significant ground-glass. No pulmonary edema. No mediastinal hilar lymphadenopathy. Borderline cardiomegaly. No significant effusion. Mild coronary calcification. The aorta is nonaneurysmal. No axillary lymphadenopathyor chest wall mass. Images of the upper abdomen demonstrate no gross abnormality. Bone windows demonstrate no suspicious lytic or sclerotic lesion. No acute fracture seen. IMPRESSION: 1. Grossly stable pulmonary nodules compared to 07/07/2022. Lung-RADS category 2: Benign appearance or behavior. Recommendation: Low dose Screening CT of chest in 12 months. THIS IS AN ELECTRONICALLY VERIFIED FINAL REPORT 12/08/2023 7:08 AM - Electronically signed by Jacky Chou M.D. AG: KARRI Report ID: [id number] Reading Location: [id number] Fracisco Zaman MD IMG CT PROCEDURES Final Resu lt from Last 3 Months or Most Recently Relevant to Health Maintenance Insurance [facility] Member Subscriber Plan / Payer (Ef fective 2023-Present) Name:Mayra Delgado Relation to Subscriber:Self Name:Mayra Delgado Payer ID:[id number] (NAIC) Group ID:Not on file Type:MEDICAID RISK OTHER Address: ATTN: CLAIMS DEPT [address] [facility] [place] [id number] [facility] Care Teams Logistics Lead Relationship Specialty Start Date End Date Ashish Gomez MD PCP - General 07/05/17 [place], Allie Bhatt MD [address] [facility], [address] [place] [address] Surgeon Breast Surgery 07/09/22
--- OUTSIDE RECORDS SUMMARY | 2024-11-11 19:24 | XMS_ITS | Data Portability ---
Author Organization [facility] [employer], Main Office Address [address] [place] [address] Care Team Providers Care Flight Surveyor Name Role Phone WOOD EMERSON Primary Care Provider [phone] WOOD EMERSON Referring Provider [phone] Assessment Encounter Date Assessment Date Assessment LastModified by Organization Details LastModified Time 11/06/2024 11/06/2024 This note is dictated and transcribed by [employer]. Drawer Maker variances may occur. Despite proofreading, typographical errors may occur. Occasional wrong-word or '[id number]' substitutions may have occurred due to the inherent limitations of voice recording. Read the chart carefully and recognize, using context, where substitutions have occurred. Not available 11/06/2024 11:08:11 Plan of Treatment Reminders Order Date Submit Date Provider Last Modified By Organization Details Last Modified Time Details Appointments Establish ed Patient 15 2024 10:45A Mag Mart DPM Not available Not available Not available Lab urinalysi s, dipstick 2022 023 [facility] [place], [address] [facility] [address], [place], [address], 10/06/2022 16:33:24 Referral None recorded. Procedures None recorded. Surgeries None recorded. Imaging XR, kidney + ureter + bladder 2022 023 [facility] ([facility]), [address] [place], [address], 10/06/2022 12:08:40 Medication Orders None recorded. Patient TargetsNo targets recorded. Patient Instructions Encounter Date Encounter Id Patient Instructions Last Modified By Organization Details Last Modified Time 11/06/2024 [id number] plantar fascia stretching exercises Not available 11/06/2024 11:11:16 plantar fasciiti s education Not available 11/06/2024 11:11:16 Reason for Referral None Reported. Results Created Date Observation Date Name Description Value Unit Range Abnormal Flag Note LastModifiedBy Organization Detail LastModifiedTime 10/02/1910/01/2022 urina lysis , dipst ick Leukocytes (reference range: negative sarah/ l) Negati ve Not Available [facility] [address], [place], [address], 10/01/2022 09:06:27 10/02/19 23 10/01/2022 urina lysis , dipst ick Nitrite (reference rage: negative mg/dl) negati ve Not Available [facility] [address], [place], [address], 10/01/2022 09:06:27 10/02/19 23 10/01/2022 urina lysis , dipst ick Urobilinogen (reference range: 0.2-1 mg/dl) 0.2 Not Available [facility] [address], [place], [address], 10/01/2022 09:06:27 10/02/19 23 10/01/2022 urina lysis , dipst ick Protein (reference range: negative mg/dl) Negati ve Not Available [facility] [address], [place], [address], 10/01/2022 09:06:27 10/02/19 23 10/01/2022 urina lysis , dipst ick pH (reference range: 5-7) 5.5 Not Available [facility] [address], [place], [address], 10/01/2022 09:06:27 10/02/19 23 10/01/2022 urina lysis , dipst ick Blood (reference range: negative Ruy/ l) Non-He molyze d: Trace Not Available s_[facility] [address], [place], [address], 10/01/2022 09:06:27 10/02/19 23 10/01/2022 urina lysis , dipst ick Specific [place] (reference range: 1.005-1.030) 1.020 Not Available s [facility] [address], [place], [address], 10/01/2022 09:06:27 10/02/19 23 10/01/2022 urina lysis , dipst ick Ketone (reference range: negative mg/dl) Negati ve Not Available [facility] [address], [place], [address], 10/01/2022 09:06:27 10/02/19 23 10/01/2022 urina lysis , dipst ick Bilirubin (reference range: negative mg/dl) Negati ve Not Available [facility] [address], [place], [address], 10/01/2022 09:06:27 10/02/19 23 10/01/2022 urina lysis , dipst ick Glucose (reference range: negative mg/dl) Negati ve Not Available [facility] [address], [place], [address], 10/01/2022 09:06:27 10/02/19 23 10/01/2022 urina lysis , dipst ick Appearance Clear Not Available s_g [facility] [address], [place], [address], 10/01/2022 09:06:27 10/02/19 23 10/01/2022 urina lysis , dipst ick Color Yellow Not Available [facility] [place] [address], [place], [address], 10/01/2022 09:06:27 10/07/1910/01/2022 XR, kidne y + urete r + bladd er No observ ation record ed. [facility] ([facility]) [address] [place], [address], 10/06/2022 16:30:16 Result Notes None recorded. Problems Name Problem SNOMED Code Status Onset Date Resolution Date Notes Provider Name and Address Organization Details Recorded Time Kidney stone 77631123 Active 2022 Colleen Casillas MA null, [employer] [facility] 09:06:32 Bilateral plantar fasciitis 16794645552993 108 Active 2024 Baljinder Mart DPM [address] [address], [place], [address], [employer] [facility] 11:08:16 Pain in both feet 27751522627808 102 Active 2024 Baljinder Mart DPM [address] [address], [place], [address], [employer] [facility] 5 11:08:21 Problem Notes None recorded. Procedures Surgical History Date Name Laterality Status Provider Name and Address Organization Details Recorded Time Cholecystectomy completed Colleen Pantoja MA [employer] [facility] 10/01/2022 09:04:42 Lithotripsy completed Colleen Casillas MA [place] [email or web address] [facility] 10/01/2022 09:04:48 hysterectomy completed Genevieve Olvera [employer] [facility] 11/06/2024 10:23:20 Imaging Results Imaging Date Name Status LastModified by Organiz ation Details LastModified Time 10/01/2022 XR, kidney + ureter + bladder completed [facility] ([facility]) [address] [facility], [place], [address], 10/06/2022 16:30:16 Procedure Notes None recorded. Medical Equipment None Reported. Allergies No known drug allergies Medications Name Sig Start Date Stop Date Status Note LastModified by Organization Details LastModified Time cyclobenzap rine 10 mg tablet TAKE 1 TABLET BY MOUTH THREE TIMES DAILY NEEDED FOR MUSCLE SPASM active Not Available Not Available No t Available silver sulfadiazin e 1 % topical cream 1 APPLICATI ON TOPICALLY TWICE DAILY TO 1.5 MM THICKNESS 10/01 completed Not Available Not Available Not Available bupropion HCl SR 150 mg tablet,12 hr sustained-r elease 11/06 completed Not Available Not Available Not Available nicotine 14 mg/24 hr daily transdermal patch 1 PATCH TRANSDERM ALLY DAILY 10/01 completed Not Available Not Available Not Available alprazolam 1 mg tablet TAKE 1 TABLET BY MOUTH TWICE DAILY NEEDED FOR ANXIETY. FOLLOW UP EVERY 3 MONTHS active Not Available Not Available No t Available tizanidine 4 mg tablet 11/06 completed Not Available Not Available Not Available valacyclovi r 1 gram tablet TAKE 1 TABLET BY MOUTH EVERY 8 HOURS FOR 7 DAYS 10/01 completed Not Available Not Available Not Available omeprazole 40 mg capsule,del ayed release TAKE 1 CAPSULE BY MOUTH DAILY active Not Available Not Available No t Available amoxicillin 500 mg tablet TAKE 1 TABLET BY MOUTH EVERY 12 HOURS FOR 10 DAYS 10/01 completed Not Available Not Available Not Available ofloxacin 0.3 % ear drops INSTILL 10 DROPS INTO BOTH EARS DAILY FOR 7 DAYS 11/06 completed Not Available Not Available Not Available benzonatate 100 mg capsule TAKE 1 CAPSULE BY MOUTH THREE TIMES DAILY FOR 10 DAYS NEEDED FOR COUGH 11/06 completed Not Available Not Available Not Available hydrocodone 7.5 mg-acetamin ophen 325 mg tablet TAKE 1 TABLET BY MOUTH EVERY 4 HOURS NEEDED FOR PAIN 10/01 completed Not Available Not Available Not Available nicotine 21 mg/24 hr daily transdermal patch APPLY 1 PATCH TO THE SKIN DAILY active Not Available Not Available No t Available nystatin-tr iamcinolone 100,000 unit/g-0.1 % topical cream APPLY TOPICALLY TO THE AFFECTED AREA TWICE DAILY IN THE MORNING AND IN THE EVENING FOR 14 DAYS active Not Available Not Available No t Available codeine 10 mg-guaifene sin 100 mg/5 mL oral liquid TAKE 10 ML BY MOUTH EVERY 6 HOURS NEEDED FOR COUGH. USE WITH CAUTION DUE TO DROWSINES S 11/06 completed Not Available Not Available Not Available mupirocin 2 % topical ointment APPLY OINTMENT TOPICALLY TO AFFECTED AREA TWICE DAILY 10/01 completed Not Available Not Available Not Available ibuprofen 600 mg tablet TAKE 1 TABLET BY MOUTH THREE TIMES DAILY active Not Available Not Available No t Available albuterol sulfate HFA 90 mcg/actuati on aerosol inhaler INHALE 2 PUFFS BY MOUTH EVERY 6 HOURS NEEDED FOR WHEEZING OR SHORTNESS OF BREATH active Not Available Not Available No t Available cefdinir 300 mg capsule TAKE 1 CAPSULE BY MOUTH EVERY 12 HOURS FOR 10 DAYS 10/01 completed Not Available Not Available Not Available fluticasone propionate 50 mcg/actuati on nasal spray,suspe nsion SHAKE LIQUID AND USE 2 SPRAYS IN EACH NOSTRIL EVERY DAY 11/06 completed Not Available Not Available Not Available gentamicin 0.1 % topical ointment APPLY TOPICALLY TO THE AFFECTED AREA TWICE DAILY 11/06 completed Not Available Not Available Not Available amoxicillin 875 mg-potassiu m clavulanate 125 mg tablet TAKE 1 TABLET BY MOUTH EVERY 12 HOURS FOR 7 DAYS active Not Available Not Available No t Available azithromyci n 500 mg tablet TAKE 1 TABLET BY MOUTH DAILY FOR 3 DAYS 11/06 completed Not Available Not Available Not Available ciprofloxac in 0.3 %-dexametha sone 0.1 % ear drops,suspe nsion INSTILL 4 DROPS INTO EACH EAR EVERY 12 HOURS FOR 7 DAYS 10/01 completed Not Available Not Available Not Available naloxone 4 mg/actuatio n nasal spray 10/01 completed Not Available Not Available Not Available Vitals Date Recorded Body height Body temperature Body mass index (BMI) Body weight Heart rate Oxygen saturation Oxygen saturation in Arterial blood by Pulse oximetry Systolic blood pressure Diastolic blood pressure Provider Name and Address Organization Details Last Updated DateTime 3 177.8 cm 97.2 [degF] 22.7 kg/m2 55172.5 9 g 70 /min 99 % 99 % 122 mm[Hg] 76 mm[Hg] Colleen Casillas MA [employer] 3 09:19:21 Date Recorded Body height Body mass index (BMI) Body weight Heart rate Respiratory rate Oxygen saturation Oxygen saturation in Arterial blood by Pulse oximetry Systolic blood pressure Diastolic blood pressure Provider Name and Address Organization Details Last Updated DateTime 5 180.34 cm 23.4 kg/m2 53703.5 2 g 58 /min 14 /min 98 % 98 % 140 mm[Hg] 88 mm[Hg] Genevieve Olvera [employer] 5 10:20:01 Social History Question Answer Notes LastModified by [employer] Details LastModified Time Tobacco Smoking Status Current Every Day Smoker Colleen Casillas MA [facility] [employer] [facility] 10/01/2022 09:04:22 What Is Your Level Of Caffeine Consumption? Moderate Information not available 10/01/2022 What Was The Date Of Your Most Recent Tobacco Screening? 11/06/2024 [email or web address] Information not available 11/06/2024 What Is Your Current Pack Years? 30ormorepacky ears Information not available 10/01/2022 How Much Tobacco Do You Smoke? 1 PPD Information not available 10/01/2022 Has Tobacco Cessation Counseling Been Provided? No Information not available 10/01/2022 Sex: Unknown Functional Status Question Answer Note LastModified by [employer] Details LastModified Time Do you use any illicit or recreational drugs? No Information not available 10/01/2022 Do you or have you ever used any other forms of tobacco or nicotine? No Information not available 10/01/2022 What is your level of alcohol consumption? None Information not available 10/01/2022 Mental Status None recorded. Family History Relationship Description Onset Age of this Age Resolved Age Notes LastModified by Organization Details LastModified Time Unspecified Relation Diabetes mellitus Not available 2022 09:03:02 Brother Malignant neoplasm of lung [email or web address] Not available 2024 10:22:45 Brother Cerebrovascu lar accident [email or web address] Not available 05/2025 10:22:37 Sister Malignant neoplasm of lung [email or web address] Not available 2024 10:22:49 Medical History Condition Response CYSTITIS N BLINDNESS N RHEUMATIC FEVER N KIDNEY STONES Y BLADDER PROBLEMS N Enlarged Prostate N MRSA N LUNG DISEASE/DISORDER N HISTORY OF DRUG ABUSE N COPD N RADIATION / CHEMOTHERAPY N BLOOD DISEASES N SHINGLES N BOWEL PROBLEMS N DEPRESSION (INCLUDING POST ) N FAILED BACK SYNDROME N STROKE/TIA N THYROID DISEASE N BENIGN PROSTATIC HYPERPLASIA N OBESITY N GERD/NAUSEA N ANEURYSM N Increased Urination N URINARY/BLADDER/KIDNEY PROBLEMS N CORONARY ARTERY DISEASE (CAD) N Do you have Advance directive? N USE OF BLOOD THINNERS N EMPHYSEMA N GASTROINTESTINAL DISORDER N GASTROINTESTINAL BLEEDING N BLOOD CLOTS N Difficulty Urinating N ASTHMA N Abdominal Pain N CATARACTS N ARTERIAL INSUFFICIENCY N ERECTILE DYSFUNCTION N GI PROBLEMS N Low Testosterone N AIDS/HIV N LIVER DISEASE N MALE HYPOGONADISM N HYPERTENSION N TOURETTE'S N BLOOD TRANSFUSION N ANEMIA/BLOOD DISORDER N TUBERCULOSIS N GLAUCOMA N SLEEP APNEA N BACK INJECTIONS N INFECTIOUS DISEASE N HEART ARRHYTHMIA N PROSTATE N INSOMNIA N ESRD N HIGH CHOLESTEROL / HYPERLIPIDEMIA N HYPERTHYROIDISM N UTI N PVD N EDEMA N HYPOTHYROIDISM N BACK / NECK PROBLEMS N HAVE YOU BEEN HOSPITALIZED OR SEEN IN [facility] ER IN THE PAST YEAR ? N DIALYSIS N POLYCYSTIC OVARIES N OSTEOPOROSIS N ARTHRITIS N NO SIGNIFICANT PAST MEDICAL HISTORY N DIABETES, TYPE N VON WILLIBRAND'S DISEASE N PARKINSON N HEARTBURN / REFLUX Y incontinence N POST LAMINECTOMY SYNDROME N HEPATITIS / LIVER DISEASE N GOUT N SLEEP DISORDER N ALZHEIMER'S DISEASE N HERPES N SEIZURES/EPILEPSY N HEADACHES/MIGRAINES N PACEMAKER N HEART MURMUR N DIZZINESS N KIDNEY DISEASE N HEART DISEASE/HEART PROBLEMS N MULTIPLE SCLEROSIS N NEUROPSYCHOLOGICAL N CANCER: SPECIFY N ANESTHESIA COMPLICATIONS N ATRIAL FIBRILLATION N AUTOIMMUNE DISEASE N Gynecological HistoryNo gynecological history recorded. Obstetrics History GPAL:G 0 P 0 0 0 0 Past Encounters Encounter ID Performer Location Encounter Start Date Encounter Closed Date Diagnosis/Indication Diagnosis SNOMED-CT Code Diagnosis ICD10 Code Diagnosis Note [id number] Dany Singh MD [facility] [address] [address] 10/01/2022 08:32:34 10/01/2022 09:34:44 Kidney stone 38380614 N20.0 KUB todayIf KUB is clear; follow up in a year with KUBdiscuss ed diet and forced hydration; consider medical interventi on. [id number] Baljinder Mart DPM [facility] [place] [address] [place] [address] 11/06/2024 10:11:59 11/07/2024 15:31:26 Bilateral plantar fasciitis 6304562348 0980364 M72.2 recommend [employer] [place] 3/4 length insolescon tinue supportive shoe gearStretc [place] and icing instructio ns reviewedFo llow-up in 4-5 weeks possible injectionP atient is starting physical therapy this week.- Through her PCP Pain in both feet 393458 5015 0041456 M79.671 M79.672 As above Health Concerns Section Related Observation LastModified by Organization Detai ls LastModified Time None Recorded Concern Status LastModified by Organization Details LastModified Time None Recorded Advance Directives Directive None Recorded Payers Encounter Date Sequence Insurance Name Policy Number Policy Velasquez Covered Member ID Velasquez Member ID Guarantor Name 10/01/2022 1 [facility] ON OR AFTER 12/26/20 (MEDICAID REPLACEMENT - HMO) Mayra Delgado [id number] Mayra Delgado 11/06/2024 1 [facility] ON OR AFTER 12/26/20 (MEDICAID REPLACEMENT - HMO) Mayra Delgado [id number] Mayra Delgado Notes Date Note Type Note Provider Name and Address Organization Details Recorded Time 10/01/2022 text/html 57 yo female follow ed for many years by Dr. Colunga. She lost insurance so she could not afford to see him. She endorses ffrequent stone formation with multiple procedures. No acute flank pain or gross hematuria. She is not on any meds for stones but drinks a lot of water. She had a CT 2 mo ago but we do not have the reports. Dany Singh MD [address] [place] [address], [address] [address], [place], [address], [facility] [employer] 10/01/2022 09:36:07 11/06/2024 text/html . Patient is a 59-year-old female she presents with complaints of bilateral plantar fasciitis she states she did get some inserts [id number] she states they are not helping as much as she thought. Patient states they are foam based. Patient denies any injury to the foot. Patient states the pain comes and goes. Patient states the pain is worse after she is on her feet for long time. Patient denies any other complaints. Baljinder Mart DPM [address] [facility] [facility] [address], [place], [address], [place] [employer] [facility] 11/06/2024 11:11:58 OBGyn Episode No OBEpisode recorded.
--- OUTSIDE RECORDS SUMMARY | 2024-11-11 19:24 | XMS_ITS | Clinical Summary ---
Author Organization [facility] Address [address] [place] [address] Care Team Providers Care Customs And Border Protection Inspector Name Role Phone Ashish Gomez MD Primary Care Provider [phone] Source Comments [facility],non-owned Affiliates and Associated Physician Practices is amultiple site organization consisting of ambulatory clinics and hospital sitesin [place], [place], [place] and [place]. This disclosure is being madepursuant to the Care Everywhere program and may not contain all information available regarding this patient. Last updated 18.[facility] Allergies Active Allergy Reactions Criticality Noted Date Comments Chlorpheniramine-Phenylephrine Urticaria Medium 08/04 Influenza Vaccines Unknown 08/04/2019 Medications * Be aware that medications may not be up to date on this document. Alwaysverify current medications with the patient. ALPRAZolam (XANAX) 1 MG tablet Take 1 (one) tablet by mouth 2 times daily 9 Active multivitamin daily tablet Take 1 (one) tablet by mouth daily with food Active docusate sodium (COLACE) 100 MG capsule Take 1 (one) capsule by mouth once daily as needed for Constipation 30 capsule 1 2 Active Additional Information Patient not taking.Reported on 07/13/2022 fluticasone propionate (FLONASE) 50 MCG/ACT nasal sprayIndication s:Nonallergic Rhinitis [place] 1 (one) spray into each nostril once daily Reasons: Nonallergic Rhinitis 16 g 2 2 Active Additional Information Patient not taking.Reported on 03/29/2023 ofloxacin (FLOXIN) 0.3 % otic solution Instill 4 (four) drops into right ear 2 times daily Use until the bottle runs out. 10 mL 2 Active Additional Information Patient not taking.Reported on 07/13/2022 HYDROcodone-sherrell taminophen (NORCO) 7.5-325 MG tablet Take 1 tablet by mouth every 4 hours as needed pain 2 Active levocetirizine (Xyzal Allergy 24HR) 5 MG tablet Take 1 (one) tablet by mouth once daily 30 tablet 5 2 Active Additional Information Patient not taking.Reported on 07/13/2022 benzonatate (Tessalon) 100 MG capsule Take 1 (one) capsule by mouth 3 times daily as needed for cough 3 Active naloxone HCl (Narcan) 4 MG/0.1ML nasal spray [place] 4 (four) sprays into the nose as directed 2 Active valACYclovir (Valtrex) 1 GM tablet Take 1 (one) tablet by mouth as directed 2 Active fluticasone propionate (Flonase) 50 MCG/ACT nasal spray [place] 2 (two) sprays into each nostril once daily 48 g 4 3 Active Additional Information Patient not taking.Reported on 11/01/2023 nicotine (Nicoderm CQ) 21 MG/24HR patch Apply 1 (one) patch to skin once daily 3 Active omeprazole (PriLOSEC) 40 MG capsule Take 1 (one) capsule by mouth daily before breakfast Active albuterol HFA (Proventil; Ventolin; Proair) 108 (90 Base) MCG/ACT inhaler Inhale 2 (two) puffs by mouth as directed 4 Active buPROPion SR 12hr (Wellbutrin-SR) 150 MG tablet Take 1 (one) tablet by mouth as directed Active gentamicin (Garamycin) 0.1 % topical ointment Apply 1 Dose to affected area two times daily at 4am and 4pm Active Active Problems Problem Noted Date Diagnosed Date Tendinopathy of right rotator cuff 06/26/2020 Dyslipidemia 11/11/2018 Screening for other and unsp ecified cardiovascular conditions 11/09/2018 Mixed conductive and sensori neural hearing loss of both ears 11/07/2018 Anxiety disorder, unspecified 10/20/2018 Apnea 10/20/2018 Recurrent acute serous otitis media of right ear 10/20/2018 Perforated tympanic membrane, right 2018 Dryness of right ear canal 2018 ETD (Eustachian tube dysfunction), right 019 Mixed conductive and sensori neural hearing loss of right ear with restricted hearing of left ear 2018 Diffuse otitis externa of right ear 2018 Sensorineural hearing loss ( SNHL) of left ear with restricted hearing of right ear 2018 Dietary counseling and surveillance 08/29/2018 Right chronic otitis media 08/29/2018 Acute pansinusitis 01/18/2018 Glenoid labrum tear 12/14/2017 Chest pain 11/29/2017 Tobacco dependence syndrome 11/29/2017 Atypical ductal hyperplasia of right breast 10/26 Bilateral knee swelling 11/05/2017 Cigarette nicotine dependence without complicati on 11/05/2017 Right shoulder pain 11/05/2017 Nasal congestion 10/05/2017 Traumatic arthritis of knee 09/02/2017 Calculus of kidney 12/07/2016 Small kidney, unspecified 12/07/2016 Gastroesophageal reflux disease 01/28/2010 Resolved Problems Problem Noted Date Diagnosed Date Resolved Date Upper respiratory tract infection 07/01/2017 11/03/2018 Immunizations Immunization Administration Dates Next Due INGRIDID ANNITA PRIMARY 18+YR 10/05/2020 TDAP, HISTORIC VACCINE 04/26/2020 Family History Medical History Relation Name Comments CVA Brother Cancer - Other Brother Seizures Brother Cancer - Breast Paternal Aunt Cancer - Lung Sister 1 Cancer - Lung Sister 2 Relation Name Status Comments Brother Paternal Aunt Sister 1 Sister 2 Alive Social History Tobacco Use Types Packs/Day Years Used Date Smoking Tobacco: Some Days Cigarettes 0.5 43.4 Started: 1981 Smokeless Tobacco: Never Tobacco Cessation:Ready to Q uit: Not Asked; Counseling Given: Not Answered Comments:3-4 cigs a day Alcohol Use Standard Drinks/Week Comments No 0 (1 standard drink = 0.6 oz pur e alcohol) Comments No Sex and Gender Information Value Date Recorded Sex Assigned at Not on file Legal Sex Female 3:09 PM CDT Gender Identity Not on file Sexual Orientation Not on file Last Filed Vital Signs Vital Sign Reading Time Taken Comments Blood Pressure 103/65 11/01/2023 10:02 AM CDT Pulse 82 11/01/2023 10:02 AM CDT Temperature 36.9 C (98.5 F) 09/01/2021 9:43 AM BREAKER OFF Respiratory Rate 16 08/13/2021 4:25 PM BREAKER OFF Oxygen Saturation 93% 08/13/2021 4:25 PM BREAKER OFF Inhaled Oxygen Concentration - - Weight 75.8 kg (167 lb 3.2 oz) 11/01/2023 10:02 AM CDT Height 177.8 cm (5' 10 ) 11/01/2023 10:02 AM CDT Body Mass Index 23.99 11/01/2023 10:02 AM CDT Plan of Treatment Health Maintenance Due Date Last Done Comments COLOGUARD (AGES 45-75) - COLON CA SCREENING 1965 COLON MONITORING 1965 COLONOSCOPY - COLON CA SCREENING 1965 CT COLONOGRAPHY - COLON CA SCREENING 1965 Colorectal Cancer Screening 1965 FIT - COLON CA SCREENING 1965 FLEX SIG - COLON CA SCREENING 1965 LIPID TESTING 1965 PAP SMEAR 1965 HIV SCREENING 1980 HEPATITIS C SCREENING 09/25/1983 HEPATITIS B VACCINE (1 of 3 - 19+ 3-dose series) 1984 PNEUMOCOCCAL VACCINE 50+ (1 of 2 - PCV) 1984 ZOSTER VACCINE (1 of 2) 09/30/2015 COVID-19 VACCINE (2 - season) 2024 10/05/2020 DEPRESSION SCREENING 06/28/2024 INFLUENZA VACCINE (Season Ended) 2025 MAMMOGRAM 08/10/2025 08/10/2023, 07/29, 12/28/2018, Additional history exists DTAP/TDAP/TD VACCINES (2 - Td or Tdap) 04/26/2030 04/26/2020 HIB VACCINE Aged Out No longer eligi ble based on patient's age to complete this topic HPV VACCINE Aged Out No longer eligi ble based on patient's age to complete this topic MENINGOCOCCAL (Group B) VACCINE SHARED DECISION-MAKING Aged Out No longer eligible based on patient's age to complete this topic MENINGOCOCCAL GROUPS A/C/Y/W VACCINE Aged Out No longer eligible based on patient's age to complete this topic Procedures Procedure Name Priority Date/Time Associated Diagnosis Comments MAMMO BILAT DIAGNOSTIC Routine 12/28/2018 10:31 AM CDT Atypical ductal hyperplasia of right breast from Last 3 Months or Most Recently Relevant to Health Maintenance Results * MAMMO BILAT DIAGNOSTIC (12/28/2018 10:31 AM CDT) Anatomical Region Laterality Modality Breast Bilateral Mammography 12/28/2018 10:1 4 AM CDT Impressions 12/28/2018 10:20 AM CDT IMPRESSION: No evidence of malignancy ASSESSMENT: BIRADS Category 2: Benign finding(s). RECOMMENDATION: Bilateral screening mammogram in one year Findings discussed with the patient This report was electronically signed by MARYAM GONZALEZ M.D. on 12/28/2018 10:20 AM . Narrative 12/28/2018 10:20 AM CDT BILATERAL DIAGNOSTIC MAMMOGRAM WITH WILLI SYNTHESIS TECHNIQUE: Images were performed using 2D full field digital mammography with 3D tomosynthesis images. CAD analysis was performed. DATE: 12/28/2018. HISTORY: 53-year-old female presents for annual mammography status post excision of right breast atypical ductal hyperplasia in 2014 COMPARISON: Several priors, most recent 2018 BREAST COMPOSITION: The breasts are heterogeneously dense, which may obscure small masses. FINDINGS: There is no suspicious mass, architectural distortion or microcalcifications either breast. Michelle Madrid DO MAMMO ORDERABLES Final Resu lt from Last 3 Months or Most Recently Relevant to Health Maintenance Additional Health Concerns Infection Onset Date Last Indicated MRSA 09/19/2018 09/19/2018 Insurance [facility] Advance Directives * Full Code (Latest Code Status on File) Date Activated Date Inactivated Comments 02/28/2020 5:48 PM 02/28/2020 7:39 PM * Full Code Date Activated Date Inactivated Comments 02/28/2020 11:06 AM 02/28/2020 5:47 PM Care Teams Customs And Border Protection Inspector Relationship Specialty Start Date End Date Ashish Gomez MD [address] [place] [phone] PCP - General Family Medicine 06/16/18
--- OUTSIDE RECORDS SUMMARY | 2024-11-11 19:24 | XMS_ITS | Clinical Summary ---
Author Organization [facility] Address [address] [place] [id number] Phone Care Team Providers Care Department Administrator Name Role Phone Unavailable Primary Care Provider Unavailabl e Medications aspirin (ASPIR-LOW) 81 MG EC tablet 1 daily 0 12/03/2016 Active isosorbide mononitrate (IMDUR) 30 MG 24 hr tablet 1 daily 0 12/03/2016 Active nitroglycerin (NITROSTAT) 0.4 MG SL tablet 1 daily 0 12/03/2016 Active ALPRAZolam (XANAX) 1 MG tablet 1 daily prn 0 12/03/2016 Active Active Problems Problem Noted Date Diagnosed Date Calculus of kidney 12/07/2016 Small kidney, unspecified 12/07/2016 Family History Medical History Relation Comments Kidney disease Neg Hx Kidney stone Neg Hx Social History Tobacco Use Types Packs/Day Years Used Date Smoking Tobacco: Heavy Smoker Alcohol Use Standard Drinks/Week Comments No 0 (1 standard drink = 0.6 oz pur e alcohol) Comments Unknown Sex and Gender Information Value Date Recorded Sex Assigned at Not on file Legal Sex Female 7:44 AM MST Gender Identity Not on file Sexual Orientation Not on file Last Filed Vital Signs Vital Sign Reading Time Taken Comments Blood Pressure 118/74 12/07/2016 12:01 AM CDT Pulse 72 03/15/2017 12:01 AM CDT Temperature 36.9 C (98.4 F) 03/15/2017 12:01 AM CDT Respiratory Rate - - Oxygen Saturation - - Inhaled Oxygen Concentration - - Weight 79.4 kg (175 lb) 03/15/2017 12:01 AM CDT Height 170.2 cm (5' 7 ) 03/15/2017 12:01 AM CDT Body Mass Index 27.41 03/15/2017 12:01 AM CDT Plan of Treatment Not on file
--- OUTSIDE RECORDS SUMMARY | 2024-11-11 19:24 | XMS_ITS | Encounter Summary ---
Author Organization [facility] Address [address] [place] [address] Care Team Providers Care Varnishing Unit Operator Name Role Phone Ashish Gomez MD Primary Care Provider [phone] Reason for Visit * Reason Onset Date Comments Medication Issue 03/02/2024 Encounter Details Date Type Department Care Team (Late st Contact Info) Description 03/02/2024 Telephone [facility] - ENT [address] [place] [phone] Chay Francis MD [address] [place] [address] DEPT OF [place]OLOGY [place], [place] [id number] Medication Issue Social History Tobacco Use Types Packs/Day Years Used Date Smoking Tobacco: Some Days Cigarettes 0.5 43.4 Started: 1981 Smokeless Tobacco: Never Comments:3-4 cigs a day Alcohol Use Standard Drinks/Week Comments No 0 (1 standard drink = 0.6 oz pur e alcohol) Comments No Sex and Gender Information Value Date Recorded Sex Assigned at Not on file Legal Sex Female 3:09 PM CDT Gender Identity Not on file Sexual Orientation Not on file documented as of this encounter Functional Status * Is person deaf or have serious hearing difficulty? Answer Date of Assessment Author Yes 02/28/2020 6:21 PM ELVIST Yessi Sarmiento RN * Is person blind or have serious difficulty seeing? Answer Date of Assessment Author No 02/28/2020 6:21 PM ELVISYessi Gordon RN * Does person have serious difficulty walking/climbing stairs? Answer Date of Assessment Author No 02/28/2020 6:21 PM ELVIST Yessi Sarmiento RN * Does person have difficulty dressing/bathing? Answer Date of Assessment Author No 02/28/2020 6:21 PM ELVIST Yessi Sarmiento RN * Does person have difficulty doing errands alone? Answer Date of Assessment Author No 02/28/2020 6:21 PM ELVIST Yessi Sarmiento RN documented as of this encounter Mental Status * Does person have difficulty concentrating/remembering/making decisions? Answer Entry Date Author No 02/28/2020 6:21 PM Yessi Burgos RN documented in this encounter Miscellaneous Notes * Telephone Encounter - Chance Jefferson - 03/02/2024 10:09 AM CDT Current Provider: Tito Reason for Call: pt needs refill on omeprazole (PriLOSEC) 40 MG capsule sent to [facility] [place] [facility] Patient Call Back Number: [phone] documented in this encounter Plan of Treatment Not on file documented as of this encounter Visit Diagnoses Not on filedocumented in this encounter Additional Health Concerns Infection Onset Date Last Indicated Resolved Time MRSA 09/19/2018 09/19/2018 documented as of this encounter Care Teams Varnishing Unit Operator Relationship Specialty Start Date End Date Ashish Gomez MD [address] [place] [address] PCP - General Family Medicine 06/16/18 documented as of this encounter
--- OUTSIDE RECORDS SUMMARY | 2024-11-11 19:24 | XMS_ITS | Encounter Summary ---
Author Organization [facility] Address [address] [place] [address] Care Team Providers Care Pilling Machine Operator Name Role Phone Ashish Gomez MD Primary Care Provider [phone] Reason for Referral * Consultation (Routine) - Closed Specialty Diagnoses / Procedures Referred By Deysi cobos Referred To Contact Urology Diagnoses Calculus of kidney Jamila Mooney APRN-CNP [address] [place] [address] Phone: tel: fax: [facility] - Urology [address] [place] [phone] Phone: tel: fax: Referral ID Status Reason Start Date Expiration Date V isits Requested Visits Authorized [id number] Closed Specialty Services Required 04/21/2024 04/21/2025 1 1 Encounter Details Date Type Department Care Team (Late st Contact Info) Description 04/21/2024 Transcribe Orders [facility] - Centralized Scheduling [address] [place] [phone] Jamila Monoey APRN-CNP [address] [place] [address] Calculus of kidney Social History Tobacco Use Types Packs/Day Years [...] of Assessment Author No 02/28/2020 6:21 PM Yessi Burgos RN * Does person have serious difficulty walking/climbing stairs? Answer Date of Assessment Author No 02/28/2020 6:21 PM Yessi Burgos RN * Does person have difficulty dressing/bathing? Answer Date of Assessment Author No 02/28/2020 6:21 PM Yessi Brugos RN * Does person have difficulty doing errands alone? Answer Date of Assessment Author No 02/28/2020 6:21 PM Yessi Burgos RN documented as of this encounter Mental Status * Does person have difficulty concentrating/remembering/making decisions? Answer Entry Date Author No 02/28/2020 6:21 PM Yessi Burgos RN documented in this encounter Plan of Treatment Scheduled Referrals Name Type Priority Associated Diagnoses Order Schedule AMB REFERRAL TO UROLOGY Outpatient Referral Routine Calculus of kidney 1 Occurrences starting 04/21/2024 until 04/21/2025 documented as of this encounter Visit Diagnoses Diagnosis Calculus of kidney- Primary documented in this encounter Additional Health Concerns Infection Onset Date Last Indicated Resolved Time MRSA 09/19/2018 09/19/2018 documented as of this encounter Care Teams Pilling Machine Operator Relationship Specialty Start Date End Date Ashish Gomez MD [address] [place] [address] PCP - General Family Medicine 06/16/18 documented as of this encounter
--- OUTSIDE RECORDS SUMMARY | 2024-11-11 19:24 | XMS_ITS | Clinical Summary ---
Author Organization [facility] Address [address] [place] [address] Care Team Providers Care Retail Store Manager Name Role Phone Ashish Gomez MD Primary Care Provider [phone] [place] Lake[place]ie pierce MD Unavailable [phone] Allergies Active Allergy Reactions Criticality Noted Date [...] 08/26 Gastroesophageal reflux disease 01/28/2010 Lung nodules Encounters Date Type Department Care Team Description 08/23/2024 12:30 PM CUPBOARD BUILDER Office Visit [facility] Pulmonary [address] [phone] Fracisco Zaman MD Nicotine dependence, cigarettes, uncomplicated (Primary Dx); Pulmonary emphysema, unspecified emphysema type (HCC); Encounter for screening for lung cancer 08/23/2024 11:34 AM CUPBOARD BUILDER - 08/23/2024 11:59 PM CUPBOARD BUILDER Hospital Encounter [facility] Bld[facility] [address] [place] [address] Breast cancer screening by mammogram; Encounter for screening mammogram for breast cancer Discharge Disposition: Discharge to home or self care 08/23/2024 Results Follow-Up [facility] [address] [place] [phone] Allie Sue MD from Last 3 Months Surgical History Surgery Date Site/Laterality Comments HYSTERECTOMY BREAST BIOPSY Family History Medical History Relation Name Comments Heart attack Father Lung cancer Father Breast cancer Father's Sister Relation Name Status Comments Father Father's Sister Social History Tobacco Use Types Packs/Day Years [...] on file Legal Sex Female 3:55 AM CUPBOARD BUILDER Gender Identity Not on file Sexual Orientation Not on file Obstetrics History Para Term AB IAB SAB Ectopic Multiple Livin g Live Births 2 2 2 Date Outcome GA Total Labor Labor/2nd/3rd Weight Sex Type Anes PTL Janeth A1 A5 Name Clin Term Term Last Filed Vital Signs Vital Sign Reading Time Taken Comments Blood Pressure 118/74 08/23/2024 12:10 PM CUPBOARD BUILDER Pulse 73 08/23/2024 12:10 PM CUPBOARD BUILDER Temperature 36.8 C (98.2 F) 08/23/2024 12:10 PM CUPBOARD BUILDER Respiratory Rate 18 08/23/2024 12:10 PM CUPBOARD BUILDER Oxygen Saturation 98% 08/23/2024 12:10 PM CUPBOARD BUILDER Inhaled Oxygen Concentration - - Weight 76.2 kg (168 lb) 08/23/2024 12:10 PM CUPBOARD BUILDER Height 175.3 cm (5' 9 ) 08/23/2024 12:10 PM CUPBOARD BUILDER Body Mass Index 24.81 08/23/2024 12:10 PM CUPBOARD BUILDER Plan of Treatment Health Maintenance Due Date Last Done Comments Colon Cancer Screening-Colonoscopy 1965 Depression Screening 1965 Hepatitis C Screening 1965 Hepatitis B Screening 09/30/1983 Regular Well Visit/Exam 18-64 09/30/1983 Pneumococcal vaccine <65 (1 of 2 - PCV) 1984 Zoster Vaccine (1 of 2) 09/30/2015 Covid-19 Vaccine (2 - 2023-2 5 season) 2024 10/05/2020 Lung Cancer Screening 12/07/2024 12/07/2023 Influenza Vaccine (Season Ended) 2025 Breast Cancer Screening-Mammogram 08/23/2025 08/23/2024, 08/10/2023, 12/23/2017, Additional history exists DTaP/Tdap/Td Vaccine (2 - Td or Tdap) 04/26/2030 04/26/2020 Procedures Procedure Name Priority Date/Time Associated Diagnosis Comments SCREENING MAMMOGRAM BILATERAL W ALBERT Schedule Routine, Read Routine (OP Routine) 08/23/2024 11:51 AM CUPBOARD BUILDER Breast cancer screening by mammogram Encounter for screening mammogram for breast cancer CT LUNG CANCER SCREENING Schedule Routine, Read Routine (OP Routine) 12/07/2023 10:47 AM CDT Nicotine dependence, cigarettes, uncomplicated Pulmonary emphysema, unspecified emphysema type (HCC) from Last 3 Months or Most Recently Relevant to Health Maintenance Results * Screening Mammogram Bilateral W Albert (08/23/2024 11:51 AM CUPBOARD BUILDER) Anatomical Region Laterality Modality Breast Bilateral Mammography Impressions 08/23/2024 11:56 AM CUPBOARD BUILDER BI-RADS ATLAS category (overall): 1 - Negative There is no mammographic evidence of malignancy. A 1 year screening mammogram is recommended. The patient has been or will be contacted. We recommend annual screening mammography for women at average risk of breast cancer beginning at age 40, based on guidelines of the [employer] (ACR Practice Parameter for the Performance of Screening and Diagnostic Mammography) and [employer]. For women with and elevated risk of breast cancer, please refer to the ACR Practice Parameter for specific screening recommendations. The patient will be entered into a reminder system with a target due date of 1 year for her next screening exam. Narrative 08/23/2024 11:56 AM CUPBOARD BUILDER Screening Mammogram Bilateral W Albert: 08/23/24 The [...] Jacky Chou M.D. AG: KARRI Report ID: [id number] Reading Location: [place] [address] Procedure Note Jacky Chou MD - 12/08/2023 [...] Electronically signed by Jacky Chou M.D. AG: AG Report ID: [id number] Reading Location: [place] [address] Fracisco Zaman MD IMG CT PROCEDURES Final Resu lt from Last 3 Months or Most Recently Relevant to Health Maintenance Insurance Care Teams Retail Store Manager Relationship Specialty Start Date End Date Ashish Gomez MD PCP - General 07/05/17 VikramAllie MD [address] [facility] [address] [address] [place] [address] Surgeon Breast Surgery 07/09/22
--- OUTSIDE RECORDS SUMMARY | 2024-11-11 19:25 | XMS_ITS | CONTINUITY OF CARE DOCUMENT ---
Author Name osmanyshahida osmanyshahida Address Unknown Organization [facility] Address [address] [place] [address] Phone [phone] Care Team Providers Care Supervisor [facility] Name Role Phone Nat GARIBAY, Ben Unavailable [phone] IDANIA GARIBAY, WOOD F Unavailable [phone] IDANIA GARIBAY WOOD F Unavailable [phone] PROBLEMS Condition Status Date Provider Notes Tobacco abuse active Darryl Reyes MD CHEST PAIN active Darryl Reyes MD Cardiovascular screening active Darryl Reyes MD Dyslipidemia active Darryl Reyes MD Abnormal electrocardiogram active Ben salvador MD ENCOUNTERS Date Type Provider Location Encounter Diag nosis - In-person encounter Office Visit Ben Johns MD [facility] - In-person encounter Office Visit Ben Johns MD [facility] Abnormal electrocardiogram - In-person encounter Office Visit Ben Johns MD [facility] - In-person encounter Office Visit Darryl Reyes MD [facility] Cardiovascular screeningDyslipidemia - In-person encounter Office Visit Darryl Reyes MD [facility] Tobacco abuseCHEST PAIN VITAL SIGNS Date [...] pressure, diastolic, left arm 70 mm [Hg[facility], left arm 100 mm [Hg] [facility] pressure, diastolic, right arm 80 m m[Hg] Jade [facility] blood pressure, systolic, right arm 110 m m[Hg] [place] blood pressure, diastolic 70 mm[Hg] [facility] blood pressure, systolic 100 mm[Hg] Stephanie russell [place] oxygen saturation, oximetry 98 % [facility] respiratory rate E&M 16 /min [facility] pulse rate 64 /min [facility] weight E&M 190 [lb_av] [place] height E&M 71 [in_i] [place] Body Mass Index (Ratio) 25.66 kg/m2 Oleksandr maradiaga [facility] weight E&M 184 [lb_av] [facility] erg height E&M 71 [in_i] [facility] erg Body Mass Index (Ratio) 34.76 kg/m2 Oleksandr hiren [facility] blood pressure, diastolic 72 mm[Hg] Da terrence [place] blood pressure, systolic 112 mm[Hg] Dac ia [...] 0-149 High cholesterol, serum 191 mg/dL [employer] [phone]/05/16 calcium, serum 9.5 mg/dL [facility] 8.7-10.2 carbon dioxide, venous blood 19 mmol/L [employer] 20-29 Low chloride, serum 106 mmol/L [employer] 96-106 potassium, serum 4.8 mmol/L [employer] 3.5-5.2 sodium, serum 143 mmol/L [employer] [phone]/05/16 urea nitrogen/creatini ne ratio, serum 15 [employer] [...] passive cigarette sm abdiel exposure yes Ben oJhns MD social history reviewed E&M revi ewed [...] [place] alcohol use, type occasionally [place] smoking/tobacco cess ation, patient education [...] Payer name Policy type / Coverage type [facility] ID [place] MEDICAID (2) Medicaid [id number] ADVANCE DIRECTIVES Name Date DISCUSSED - NO [...] PANEL (7600) B ASIC METABOLIC PANEL W/EGFR (06992) [facility]:Advised to quit. Oleksandr Gonzalez [...] chest discomfort, cardiac cath was performed at [facility] and per report there was no significant [...]
--- NOTE | 2024-11-11 19:45 | ED_ITS ---
HPI - General Adult General Chief complaint: Upper Respiratory Infection Stated complaint: Chest congestion, stuffy nose Time Seen by Provider: 11/11/24 19:45 Source: patient Mode of arrival: ambulatory Limitations: no limitations History of Present Illness HPI narrative: 59-year-old female patient presents to [facility] with complaints of sinus congestion that started yesterday. Patient states she has a lot of congestion to the nose and has had a little bit of a runny nose. Denies fevers body aches or chills. Denies any ear pain. Denies any sore throat or coughing. Denies chest pain or shortness of breath. Patient is an active smoker. Patient states she has been trying some adgx-[id number] cold ease and allergy medications so far for her symptoms. Related Data Allergies Allergy/AdvReac Type Severity Reaction Status Date / Time No Known Allergies Allergy Verified 11/11/24 19:50 Review of Systems Review of Systems: CONSTITUTIONAL: Denies fever, chills, or sweats. EYES: Denies visual changes, redness, or discharge. ENT: Positive rhinorrhea, congestion, denies sore throat, or otalgia. CARDIOVASCULAR: Denies chest pain, palpitations, or edema. RESPIRATORY: Denies cough or dyspnea. GASTROINTESTINAL: Denies abdominal pain, nausea, vomiting, or diarrhea. GENITOURINARY: Denies dysuria or hematuria. SKIN: Denies rash or itching. MUSCULOSKELETAL: Denies back pain, joint pain, or myalgia. NEUROLOGIC: Denies headache, numbness, or weakness. PSYCHIATRIC: Denies anxiety or depression. [facility] Past Medical History Medical History Anxiety disorder, unspecified [place] of foot Tobacco abuse Surgical complication involving ear Cough Elevated hemoglobin Patella-femoral syndrome Angina at rest History of atypical hyperplasia of breast Tobacco abuse Renal stones Hx of malignant neoplasm of breast Anxiety Surgical History Surgical History H/O left wrist surgery History of ear surgery History of lumpectomy of left breast Hx of cholecystectomy History of partial hysterectomy Hx of tubal ligation Hx of esophagogastroduodenoscopy History of lithotripsy Family History Family History Sibling Cerebrovascular accident Epilepsy Sibling Esophageal cancer Lung cancer Father Acute myocardial infarction Other Breast cancer Mother Sibling No problems noted. Social History Social History Smoking packs per day: 1 Smoking cigarettes per day: 20.0 Years smoked: 40 Smoking pack-years: 40.00 Smoking status: Current some day smoker Tobacco type: cigarettes Second hand tobacco smoke exposure: Yes Alcohol intake: never Substance use: never Substance use type: does not use Lack of Transportation: No Lack of Food: Never True Current Housing: I Have Housing Concerned About Future Housing: No Difficulty Paying Gas/Electric Bills: No Difficulty Paying for Meds: No Currently Unemployed: No Education: High School Diploma/GED Living arrangements: with family Occupation/Education: occupation 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 There is no relevant family history pertinent to the presenting complaint. Exam Narrative: GENERAL: Well-appearing, well-nourished, and in no acute distress. HEAD: Normocephalic, atraumatic. EYES: PERRLA and EOMI. ENT: Nares clear, no rhinorrhea or epistaxis. Mucous membranes moist. posterior pharynx with no erythema, tonsillar enlargement, exudates or lesions present. Bilateral TMs are clear no erythema or foreign bodies the canal. NECK: Supple. No lymphadenopathy CHEST: Clear to auscultation. No respiratory distress. HEART: Regular rate and rhythm. No murmur heard. Normal peripheral pulses. ABDOMEN: Soft, nontender, nondistended, normal active bowel sounds. EXTREMITIES: Normal range of motion. No edema. SKIN: Warm, dry, no rash. NEURO: No focal deficits. Alert and oriented x3. Course Course Level of Care: Express Care Visit Vital Signs Vital signs: Vital Signs Temperature 37.2 C 11/11/24 19:47 Pulse Rate 79 11/11/24 19:47 Respiratory Rate 16 11/11/24 19:47 Blood Pressure 115/66 11/11/24 19:47 Pulse Oximetry 99 11/11/24 19:47 Oxygen Delivery Room Air 11/11/24 19:47 Temperature 37.2 C 11/11/24 19:47 Pulse Rate 79 11/11/24 19:47 Respiratory Rate 16 11/11/24 19:47 Blood Pressure 115/66 11/11/24 19:47 Pulse Oximetry 99 11/11/24 19:47 Oxygen Delivery Room Air 11/11/24 19:47 Vital signs reviewed. Medical Decision Making MDM Narrative Medical decision making narrative: Discussed with patient that this is most likely a springtime colder some type of virus causing her symptoms. Discussed with her this also could be allergies but the fact that she is not running any fevers having body aches, chills or coughing is reassuring. Discussed with patient to continue taking [id number] medications for her symptoms and that should go away on its own. If patient does feels that her symptoms are worsening or she is spiking a fever having chest pain or shortness of breath she can come back to be evaluated here or in the ER by her primary doctor. Patient verbalized understanding denies any other questions or concerns at this time Differential Diagnosis Differential Diagnosis: Differential diagnosis: Allergic rhinitis, chronic sinusitis, tonsillitis, acute sinusitis, infectious mononucleosis, seasonal influenza, pertussis, diphtheria, meningococcal disease, viral syndrome, viral bronchitis, RSV, COVID- 19 Vital Signs Vital Signs: Vital Signs Temperature 37.2 C 11/11/24 19:47 Pulse Rate 79 11/11/24 19:47 Respiratory Rate 16 11/11/24 19:47 Blood Pressure 115/66 11/11/24 19:47 Pulse Oximetry 99 11/11/24 19:47 Oxygen Delivery Room Air 11/11/24 19:47 Temperature 37.2 C 11/11/24 19:47 Pulse Rate 79 11/11/24 19:47 Respiratory Rate 16 11/11/24 19:47 Blood Pressure 115/66 11/11/24 19:47 Pulse Oximetry 99 11/11/24 19:47 Oxygen Delivery Room Air 11/11/24 19:47 Critical Care Time Critical Care Time Critical Care Time: No Discharge Plan Discharge Clinical Impression: Viral URI Patient Disposition: Home Condition: Stable Instructions: Antibiotic Form, Viral Syndrome (ED) Additional Instructions: Viral illness may last between 7-12days; antibiotic is NOT recommended at this time. Recommend antihistamine such as Benadryl at night time and Claritin/Zyrtec/Donita during the day Cough syrup may cause drowsiness; avoid driving or take it at night time. Also, recommend symptomatic treatment includes: rest, fluids, and increase humidity of the air at home. Recommend Acetaminophen or nonsteroidal anti-inflammatory agents (NSAIDs) as directed in the bottle to reduce fever and/pain/headache. Avoid smoking/second-hand smoke. Limit visits to areas with large crowds. Please schedule a follow-up visit with your personal physician for further evaluation and treatment within 3-5days. Including recheck and discussion of your blood pressure. If your symptoms persist, change or worsen significantly before you can contact your personal physician then please, without delay, go to the emergency department for further evaluation. Patient Language: Brazilian Prescriptions: No Action albuterol sulfate 90 mcg/actuation HFA aerosol inhaler 1 inh inhalation Q4H PRN (Reason: shortness of breath or wheezing) Qty: 8.5 0RF nicotine 21 mg/24 hr patch 24 hour 1 patch transdermal DAILY Qty: 28 2RF alprazolam 1 mg tablet 1 mg PO BID PRN (Reason: Anxiety) Qty: 60 0RF Rx Instructions: follow up every 3mo omeprazole 40 mg capsule,delayed release(DR/EC) 40 mg PO DAILY Qty: 90 0RF Follow-up/Referrals: UNKNOWN,DOCTOR [Primary Care Provider] - Time of Disposition: 20:15
[2024-11-11 19:47] VITALS: BP 115/66; PULSE 79; RESP 16; TEMP 37.2; O2SAT 99
[2024-11-11 20:20] LABS: EDCOVIDSCREEN Negative (Negative); EDINFLUASCREEN Negative (Negative); EDINFLUBSCREEN Negative (Negative)
== END 2024-11-11 20:16 | disposition home or self-care (01) ==
PROVIDERS: Emergency Provider Nurse Practitioner Family
DX: J06.9 Acute upper respiratory infection, unspecified (principal); Z20.822 Contact with and (suspected) exposure to COVID-19; F17.210 Nicotine dependence, cigarettes, uncomplicated; I20.9 Angina pectoris, unspecified; F41.9 Anxiety disorder, unspecified; Z85.3 Personal history of malignant neoplasm of breast; Z90.711 Acquired absence of uterus with remaining cervical stump
CPT/HCPCS: 87426; 87804; 99212; G0463

== ENCOUNTER 2024-12-06 09:30 | Outpatient (RCR) | payer OTHER, SELFPAY ==
--- NOTE | 2024-11-07 10:59 | OPREHPOC ---
Outpatient Therapy Plan of Care This is a Multidisciplinary Plan of Care that may contain components documented by all disciplines (PT, OT, and ST.) PT Problem 1 PT Problem #1 Knowledge Deficit PT Goal 1 Goal / Goal Update *independent with HEP Target Visit 6 PT Problem 2 PT Problem #2 Pain PT Goal 1 Goal / Goal Update * pt report pain rating at the worst of 3/10 Target Visit 6 PT Problem 3 PT Problem #3 Impaired Flexibility PT Goal 1 Goal / Goal Update * increase R ankle DF in long sitting to 10' Target Visit 6 PT Problem 4 PT Problem #4 Impaired Strength PT Goal 1 Goal / Goal Update *increase strength of R and L ankle/foot to improve stability and position of foot/ankle: single leg standing x 10 seconds with good stability 1* R 2* L 3* increase R and L toe flexion strength to 4+/5 Target Visit 6
--- NOTE | 2024-11-07 10:59 | PTOPEVAL1 ---
Assessment and note entered by Zenaida Contreras, PT Evaluation Information Assessment Status Evaluation ICD-10 Condition Codes (PT) Pain in right ankle and joints of right foot M25. 571,Pain in left ankle and joints of left foot M25 .572 Onset mid September 2024 Subjective Information flare up of pain in arch of R in september, pain in L but not as bad as R; no injury to legs, in the past have twisted her R ankle; no imaging by medical provider; sent to [facility]- had x rays there, tendon in her arch of foot, was told to stretch ankles over edge of stairs and lean on wall; and get arch supports for her shoes; she has some Dr Hensley, but he wanted her to obtain power step arch supports; activity: work in customer service, standing for 5 -8 hour shifts; Reported Pain Level Pain Score Self Report Additional Pain Score Comments pain range in the past week 0-6/10; arch of R foot - tight, cramps, in a knot; toes cramp increase pain: just comes on when walking- flares up without a real pattern, not every time I walk decrease pain: ice, stretch toes and ankle, heat, vibrating massager sleeping is OK Assessment PT Clinical Summary Mayra has R and L foot pain. She reports flare ups of pain in arch of her feet. Self assessment with LE functional scale rating of 0%- rated herself at this time, but reports with flare up, pain 6/10. Reports no set pattern for pain, but sometimes after standing, walking and working will be painful. 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 With the evaluation: poor standing posture of feet with low arches; decreased DF active ROM and tenderness over arch of feet with palpation R > L pain. Skilled PT services are indicated for modalities to decrease pain and tenderness over feet, with strengthening of ankles and feet and education for HEP and posture. Plan of Care Interventions Hot Pack/Cold Pack,Manual Therapy,Neuro Re- education,Patient/Caregiver Education,Therapeutic Activities,Therapeutic Exercise,Ultrasound,Other Other Interventions taping PT Services Indicated Yes Treatment Frequency and 1-2x/wk for 6 visits Duration These treatments will address the objective and functional deficits as defined above. The patient will be advanced safely and appropriately in order for the patient to progress towards his/her prior level of function. Additional exercises will be introduced and as well as a comprehensive home exercise program upon discharge, if needed, ?to ensure carryover of functional gains achieved in the clinic. This treatment plan has been reviewed and agreement upon by the patient.
--- NOTE | 2024-12-11 14:47 | PCPTNOTE ---
pt did not show for today's reevaluation appt. Called and left her voice message.
--- NOTE | 2025-01-19 10:50 | OPREHPOC ---
Outpatient Therapy Plan of Care This is a Multidisciplinary Plan of Care that may contain components documented by all disciplines (PT, OT, and ST.) PT Problem 1 PT Problem #1 Knowledge Deficit PT Goal 1 Goal / Goal Update *independent with HEP 01-19-25 d/c pt stopped attending therapy goals not addressed Target Visit 6 PT Problem 2 PT Problem #2 Pain PT Goal 1 Goal / Goal Update * pt report pain rating at the worst of 3/10 01-19-25 d/c pt stopped attending therapy goals not addressed Target Visit 6 PT Problem 3 PT Problem #3 Impaired Flexibility PT Goal 1 Goal / Goal Update * increase R ankle DF in long sitting to 10' 01-19-25 d/c pt stopped attending therapy goals not addressed Target Visit 6 PT Problem 4 PT Problem #4 Impaired Strength PT Goal 1 Goal / Goal Update *increase strength of R and L ankle/foot to improve stability and position of foot/ankle: single leg standing x 10 seconds with good stability 1* R 2* L 3* increase R and L toe flexion strength to 4+/5 01-19-25 d/c pt stopped attending therapy goals not addressed Target Visit 6
--- NOTE | 2025-01-19 10:51 | PTOPDC ---
Assessment and note entered by Zenaida Contreras, PT Assessment Status Discharge - Pt Not Present ICD-10 Condition Codes (PT) Pain in right ankle and joints of right foot M25. 571,Pain in left ankle and joints of left foot M25 .572 Onset mid September 2024 Subjective Information pt was not seen this date Assessment PT Clinical Summary Mayra has received 5 PT sessions, from November 07 to December 06. She then stopped attending therapy. Discharge PT. The goals were not addressed. Plan of Care PT Services Indicated No
== END 2025-01-19 13:55 | disposition home or self-care (01) ==
LOC: ANHPT 09:30
PROVIDERS: PCP Family Medicine; Visit Provider Nurse Practitioner Family
DX: M25.532 Pain in left wrist (principal); M79.672 Pain in left foot; M79.671 Pain in right foot; G89.29 Other chronic pain
CPT/HCPCS: 97032; 97110; 97161; 97530